=== PATIENT | male | born 1965 | race Caucasian/White ===

== ENCOUNTER → 2022-07-01 | Outpatient (CLI) | payer OTHER ==
[~2022-07-01] MED LIST: HYDR-3917 PO
== END | disposition home or self-care (01) ==
LOC: SRD 16:27
PROVIDERS: ATTEND Surgery
DX: E11.621 Type 2 diabetes mellitus with foot ulcer (principal); M86.9 Osteomyelitis, unspecified; M79.89 Other specified soft tissue disorders

== ENCOUNTER 2022-07-20 10:57 | Inpatient (IN) | payer OTHER ==
[~2022-07-20] VITALS: Ht 172.7 cm; Wt 67.1 kg
[2022-07-20 11:00] VITALS: BP_SYST 142
[2022-07-20 11:53] LABS: BASOPHILS % (AUTO) 0.2 % (0.0-2.0); EOSINOPHILS % (AUTO) 0.2 % (0.0-4.0); HEMATOCRIT 27.8 % (36-54); LYMPHOCYTES # (AUTO) 1.4 K/uL (1.0-5.5); LYMPHOCYTES % (AUTO) 9.9 % (20.5-51.5); MEAN CORPUSCULAR HEMOGLOBIN 27 pg (27-31); MEAN CORPUSCULAR HGB CONC 32 % (32-36); MEAN CORPUSCULAR VOLUME 84 fL (79.0-98.0); MONOCYTES # (AUTO) 1.8 K/uL (0.0-1.0); MONOCYTES % (AUTO) 12.2 % (1.7-9.3); NEUTROPHILS # (AUTO) 11.3 K/uL (1.8-7.7); NEUTROPHILS % (AUTO) 77.5 % (40.0-70.0); PLATELET COUNT (AUTO) 487 K/uL (130-430); RED BLOOD CELL COUNT(AUTO) 3.32 MIL/uL (4.2-6.2); RED CELL DISTRIBUTION WIDTH 13.8 % (9.0-15.0); WHITE BLOOD COUNT (AUTO) 14.6 K/uL (4.8-10.8)
[2022-07-20] MEDS ORDERED: MORPHINE 2 MG/ML INJ. SYRINGE IVP ONE (12:00)
[2022-07-20 12:15] LABS: CALCIUM 8.8 mg/dL (8.4-11.0); CREATININE 1.42 mg/dL (0.55-1.30)
[2022-07-20 12:19] LABS: ALBUMIN 2.2 g/dL (3.4-4.8); C-REACTIVE PROTEIN QUANT 43.8 mg/dL (0-0.5); TOTAL BILIRUBIN 0.4 mg/dL (0.0-1.0)
[2022-07-20] MEDS ORDERED: NAFCILLIN SODIUM 1 GM in NS 50 ML IV SCH (13:15)
[2022-07-20] MEDS ORDERED: NAFCILLIN SODIUM 1 GM in NS 50 ML IV ONE (13:17)
[2022-07-20] MEDS ORDERED: NAFCILLIN SODIUM 2 GM VIAL ONE ×2 (14:35→14:37)
[2022-07-20] MEDS ORDERED: AMOX500C2 PO (15:00)
[2022-07-20] MEDS ORDERED: LIP20 PO (15:00)
[2022-07-20] MEDS ORDERED: GLIP10TA11 PO (15:00)
[2022-07-20] MEDS ORDERED: INSU100V7 SUBCUT (15:00)
[2022-07-20] MEDS ORDERED: DOXY100C5 PO (15:00)
[2022-07-20] MEDS ORDERED: LISI10TA29 PO (15:00)
[2022-07-20] MEDS ORDERED: ONDANSETRON HCL 4 MG/2 ML VIAL IVP PRN (15:15)
[2022-07-20] MEDS ORDERED: POTASSIUM CHLORIDE 20 MEQ TAB.PRT.SR PO PRN (15:15)
[2022-07-20] MEDS ORDERED: MUPIROCIN 2% TOPICAL OINTMENT 22 GM NS PRN (15:15)
[2022-07-20] MEDS ORDERED: DOCUSATE SODIUM 100 MG CAPSULE PO PRN (15:15)
[2022-07-20] MEDS ORDERED: MAGNESIUM SULFATE 50 ML IV PRN (15:15)
[2022-07-20] MEDS ORDERED: NALOXONE HCL 0.4 MG/ML AMP (NARCAN) IVP PRN ×2 (15:15)
[2022-07-20] MEDS: 0.45% NACL 1,000 ML IV SCH (15:15)
[2022-07-20] MEDS ORDERED: ACETAMINOPHEN 325 MG TABLET PO PRN (15:30)
[2022-07-20 16:42] VITALS: BP_SYST 147
[2022-07-20] MEDS ORDERED: cefTRIAXone 1 GM in D5W 50 ML IV SCH (17:00)
[2022-07-20] MEDS: INSULIN NPH/REGULAR 70-30, 100 UNITS/ML, 3 ML VIAL SUBCUT SCH (17:45)
[2022-07-20] MEDS ORDERED: SODIUM POLYSTYRENE SULFONATE 15 GM/60 ML UDBTL PO ONE (19:15)
[2022-07-20 20:00] VITALS: BP_SYST 145
[2022-07-20] MEDS: MORPHINE 2 MG/ML INJ. SYRINGE IVP PRN (21:00)
[2022-07-20] MEDS: HEPARIN SODIUM,PORCINE 5,000 UNITS/ML VIAL SUBCUT SCH (21:02)
[2022-07-20] MEDS: METOPROLOL TARTRATE 25 MG TABLET PO SCH (21:03)
[2022-07-20] MEDS: metroNIDAZOLE 500 mg/NS 100 ML IV SCH (21:08)
[2022-07-20] MEDS: INSULIN REGULAR, HUMAN 100 UNITS/ML, 3 ML VIAL (humuLIN R) SUBCUT PRN (21:09)
[2022-07-21 00:03] VITALS: BP_SYST 142
[2022-07-21] MEDS: 0.45% NACL 1,000 ML IV SCH ×2 (01:15→10:43)
[2022-07-21] MEDS: MORPHINE 2 MG/ML INJ. SYRINGE IVP PRN ×5 (02:37→22:39)
[2022-07-21] MEDS: ZOLPIDEM TARTRATE 5 MG TABLET PO PRN ×2 (02:41→22:40)
[2022-07-21] MEDS: metroNIDAZOLE 500 mg/NS 100 ML IV SCH (05:48)
[2022-07-21] MEDS: INSULIN NPH/REGULAR 70-30, 100 UNITS/ML, 3 ML VIAL SUBCUT SCH ×2 (05:54→18:34)
[2022-07-21 06:12] LABS: BASOPHILS # (AUTO) 0.1 K/uL (0.0-0.2); BASOPHILS % (AUTO) 0.5 % (0.0-2.0); EOSINOPHILS % (AUTO) 0.2 % (0.0-4.0); HEMATOCRIT 25.9 % (36-54); HEMOGLOBIN 8.6 g/dL (14.0-18.0); LYMPHOCYTES % (AUTO) 13.8 % (20.5-51.5); MEAN CORPUSCULAR HEMOGLOBIN 28 pg (27-31); MEAN CORPUSCULAR HGB CONC 33 % (32-36); MEAN CORPUSCULAR VOLUME 83 fL (79.0-98.0); MONOCYTES % (AUTO) 14.2 % (1.7-9.3); NEUTROPHILS # (AUTO) 10.1 K/uL (1.8-7.7); NEUTROPHILS % (AUTO) 71.3 % (40.0-70.0); PLATELET COUNT (AUTO) 436 K/uL (130-430); RED BLOOD CELL COUNT(AUTO) 3.11 MIL/uL (4.2-6.2); RED CELL DISTRIBUTION WIDTH 13.8 % (9.0-15.0); WHITE BLOOD COUNT (AUTO) 14.2 K/uL (4.8-10.8)
[2022-07-21 06:39] LABS: CALCIUM 8.3 mg/dL (8.4-11.0); CREATININE 1.55 mg/dL (0.55-1.30)
[2022-07-21 08:00] VITALS: BP_SYST 149
[2022-07-21 08:45] VITALS: BP_SYST 149
[2022-07-21] MEDS ORDERED: SODIUM HYPOCHLORITE 0.25% TP ONE (10:00)
[2022-07-21] MEDS: LISINOPRIL 10 MG TABLET (PRINIVIL) PO SCH (10:29)
[2022-07-21] MEDS: ATORVASTATIN 20 MG TABLET PO SCH (10:29)
[2022-07-21] MEDS: METOPROLOL TARTRATE 25 MG TABLET PO SCH ×2 (10:31→21:44)
[2022-07-21] MEDS: HEPARIN SODIUM,PORCINE 5,000 UNITS/ML VIAL SUBCUT SCH ×2 (10:33→21:45)
[2022-07-21 11:20] VITALS: BP_SYST 146
[2022-07-21] MEDS: INSULIN REGULAR, HUMAN 100 UNITS/ML, 3 ML VIAL (humuLIN R) SUBCUT PRN ×3 (11:46→21:49)
[2022-07-21] MEDS: PIPERACILLIN/TAZO 2.25G/DEX-IS 50 ML IV SCH ×2 (13:04→18:36)
[2022-07-21 15:32] VITALS: BP_SYST 128
[2022-07-21 20:00] VITALS: BP_SYST 150
[2022-07-21] MEDS ORDERED: NALOXONE HCL 0.4 MG/ML AMP (NARCAN) IVP PRN (20:45)
[2022-07-21] MEDS: LINEZOLID 300 ML IV SCH (21:43)
[2022-07-22] MEDS: HYDROcodone/ACETAMIN 5-325 MG TAB (NORCO/ VICODIN) PO PRN ×3 (00:06→22:00)
[2022-07-22] MEDS: LORazepam 2 MG/ML VIAL IVP PRN (00:08)
[2022-07-22 00:10] VITALS: BP_SYST 141
[2022-07-22] MEDS: 0.45% NACL 1,000 ML IV SCH ×3 (00:24→17:06)
[2022-07-22] MEDS: PIPERACILLIN/TAZO 2.25G/DEX-IS 50 ML IV SCH ×4 (06:01→18:46)
[2022-07-22] MEDS: MORPHINE 2 MG/ML INJ. SYRINGE IVP PRN (06:04)
[2022-07-22] MEDS: INSULIN NPH/REGULAR 70-30, 100 UNITS/ML, 3 ML VIAL SUBCUT SCH ×2 (06:07→16:57)
[2022-07-22] MEDS: INSULIN REGULAR, HUMAN 100 UNITS/ML, 3 ML VIAL (humuLIN R) SUBCUT PRN ×4 (06:08→22:02)
[2022-07-22 06:58] LABS: BASOPHILS # (AUTO) 0.1 K/uL (0.0-0.2); BASOPHILS % (AUTO) 0.4 % (0.0-2.0); EOSINOPHILS # (AUTO) 0.1 K/uL (0.0-0.4); EOSINOPHILS % (AUTO) 0.3 % (0.0-4.0); HEMATOCRIT 26.2 % (36-54); HEMOGLOBIN 8.5 g/dL (14.0-18.0); LYMPHOCYTES % (AUTO) 10.7 % (20.5-51.5); MEAN CORPUSCULAR HEMOGLOBIN 27 pg (27-31); MEAN CORPUSCULAR HGB CONC 33 % (32-36); MEAN CORPUSCULAR VOLUME 84 fL (79.0-98.0); MONOCYTES # (AUTO) 2.2 K/uL (0.0-1.0); MONOCYTES % (AUTO) 11.4 % (1.7-9.3); NEUTROPHILS # (AUTO) 14.8 K/uL (1.8-7.7); NEUTROPHILS % (AUTO) 77.2 % (40.0-70.0); PLATELET COUNT (AUTO) 458 K/uL (130-430); RED BLOOD CELL COUNT(AUTO) 3.14 MIL/uL (4.2-6.2); WHITE BLOOD COUNT (AUTO) 19.2 K/uL (4.8-10.8)
[2022-07-22 07:17] LABS: CALCIUM 8.2 mg/dL (8.4-11.0); CREATININE 1.51 mg/dL (0.55-1.30)
[2022-07-22 08:00] VITALS: BP_SYST 129
[2022-07-22] MEDS: ATORVASTATIN 20 MG TABLET PO SCH (09:25)
[2022-07-22] MEDS: METOPROLOL TARTRATE 25 MG TABLET PO SCH ×2 (09:25→21:43)
[2022-07-22] MEDS: LISINOPRIL 10 MG TABLET (PRINIVIL) PO SCH (09:25)
[2022-07-22] MEDS: HEPARIN SODIUM,PORCINE 5,000 UNITS/ML VIAL SUBCUT SCH ×2 (09:31→22:01)
[2022-07-22] MEDS: INSULIN GLARGINE 100 UNITS/ML, 10 ML VIAL SUBCUT SCH (09:32)
[2022-07-22] MEDS: LINEZOLID 300 ML IV SCH ×2 (09:36→21:41)
[2022-07-22 11:22] VITALS: BP_SYST 134
[2022-07-22] MEDS: ACETAMINOPHEN 325 MG TABLET PO PRN (14:50)
[2022-07-22 15:00] VITALS: BP_SYST 149
[2022-07-22 19:30] VITALS: BP_SYST 125
[2022-07-23] MEDS: PIPERACILLIN/TAZO 2.25G/DEX-IS 50 ML IV SCH ×5 (00:48→23:09)
[2022-07-23] MEDS: MORPHINE 2 MG/ML INJ. SYRINGE IVP PRN ×4 (00:49→22:08)
[2022-07-23 01:09] VITALS: BP_SYST 128
[2022-07-23] MEDS: 0.45% NACL 1,000 ML IV SCH ×3 (03:15→13:49)
[2022-07-23 05:22] LABS: BASOPHILS # (AUTO) 0.1 K/uL (0.0-0.2); BASOPHILS % (AUTO) 0.8 % (0.0-2.0); EOSINOPHILS # (AUTO) 0.2 K/uL (0.0-0.4); EOSINOPHILS % (AUTO) 1.2 % (0.0-4.0); HEMATOCRIT 23.9 % (36-54); HEMOGLOBIN 7.9 g/dL (14.0-18.0); LYMPHOCYTES # (AUTO) 1.7 K/uL (1.0-5.5); LYMPHOCYTES % (AUTO) 11.9 % (20.5-51.5); MEAN CORPUSCULAR HEMOGLOBIN 27 pg (27-31); MEAN CORPUSCULAR HGB CONC 33 % (32-36); MEAN CORPUSCULAR VOLUME 82 fL (79.0-98.0); MONOCYTES # (AUTO) 1.3 K/uL (0.0-1.0); MONOCYTES % (AUTO) 9.7 % (1.7-9.3); NEUTROPHILS # (AUTO) 10.6 K/uL (1.8-7.7); NEUTROPHILS % (AUTO) 76.4 % (40.0-70.0); PLATELET COUNT (AUTO) 415 K/uL (130-430); RED BLOOD CELL COUNT(AUTO) 2.92 MIL/uL (4.2-6.2); WHITE BLOOD COUNT (AUTO) 13.9 K/uL (4.8-10.8)
[2022-07-23 05:44] LABS: CALCIUM 7.5 mg/dL (8.4-11.0); CREATININE 1.62 mg/dL (0.55-1.30)
[2022-07-23 06:07] LABS: BILIRUBIN,URINE NEGATIVE (NEGATIVE); BLOOD, URINE NEGATIVE (NEGATIVE); CLARITY/URINE CLEAR (CLEAR); COLOR,URINE YELLOW (YELLOW); GLUCOSE,URINE NEGATIVE (NEGATIVE); KETONES,URINE TRACE (NEGATIVE); LEUKOCYTE ESTERASE ,URINE NEGATIVE (NEGATIVE); NITRITE, URINE NEGATIVE (NEGATIVE); PROTEIN URINE 1+ (NEGATIVE); UROBILINOGEN,URINE 0.2 (0.2-1.0)
[2022-07-23 06:17] LABS: BACTERIA,URINE None Seen /HPF (None Seen); RBC,URINE 0-3 /HPF (0-3); WBC,URINE 0-3 /HPF (0-3)
[2022-07-23] MEDS: INSULIN REGULAR, HUMAN 100 UNITS/ML, 3 ML VIAL (humuLIN R) SUBCUT PRN ×2 (06:22→16:10)
[2022-07-23] MEDS: INSULIN NPH/REGULAR 70-30, 100 UNITS/ML, 3 ML VIAL SUBCUT SCH ×2 (06:23→16:08)
[2022-07-23 08:02] LABS: INR 1.2 (0.80-1.20); PROTHROMBIN TIME 11.9 SECS (9.5-12.5)
[2022-07-23 08:16] VITALS: BP_SYST 143
[2022-07-23] MEDS: ATORVASTATIN 20 MG TABLET PO SCH (08:24)
[2022-07-23] MEDS: METOPROLOL TARTRATE 25 MG TABLET PO SCH ×2 (08:24→21:55)
[2022-07-23] MEDS: LINEZOLID 300 ML IV SCH ×2 (08:24→22:07)
[2022-07-23] MEDS: HEPARIN SODIUM,PORCINE 5,000 UNITS/ML VIAL SUBCUT SCH ×2 (08:25→21:00)
[2022-07-23] MEDS: LISINOPRIL 10 MG TABLET (PRINIVIL) PO SCH (08:25)
[2022-07-23] MEDS: INSULIN GLARGINE 100 UNITS/ML, 10 ML VIAL SUBCUT SCH (09:07)
[2022-07-23] MEDS: LORazepam 2 MG/ML VIAL IVP PRN (10:20)
[2022-07-23 10:29] VITALS: BP_SYST 150
[2022-07-23 12:27] VITALS: BP_SYST 123
[2022-07-23 15:34] VITALS: BP_SYST 139
[2022-07-23] MEDS: HYDROcodone/ACETAMIN 5-325 MG TAB (NORCO/ VICODIN) PO PRN (17:38)
[2022-07-23 19:30] VITALS: BP_SYST 156
[2022-07-24] MEDS: PIPERACILLIN/TAZO 2.25G/DEX-IS 50 ML IV SCH ×4 (06:26→23:20)
[2022-07-24] MEDS: MORPHINE 2 MG/ML INJ. SYRINGE IVP PRN ×3 (06:29→21:31)
[2022-07-24] MEDS: INSULIN REGULAR, HUMAN 100 UNITS/ML, 3 ML VIAL (humuLIN R) SUBCUT PRN ×2 (06:32→09:50)
[2022-07-24] MEDS: INSULIN NPH/REGULAR 70-30, 100 UNITS/ML, 3 ML VIAL SUBCUT SCH ×2 (06:34→18:09)
[2022-07-24 07:07] LABS: BASOPHILS % (AUTO) 0.2 % (0.0-2.0); EOSINOPHILS # (AUTO) 0.1 K/uL (0.0-0.4); EOSINOPHILS % (AUTO) 0.6 % (0.0-4.0); LYMPHOCYTES # (AUTO) 1.1 K/uL (1.0-5.5); LYMPHOCYTES % (AUTO) 7.8 % (20.5-51.5); MEAN CORPUSCULAR HEMOGLOBIN 27 pg (27-31); MEAN CORPUSCULAR HGB CONC 33 % (32-36); MEAN CORPUSCULAR VOLUME 83 fL (79.0-98.0); MONOCYTES # (AUTO) 1.3 K/uL (0.0-1.0); MONOCYTES % (AUTO) 9.2 % (1.7-9.3); NEUTROPHILS # (AUTO) 11.4 K/uL (1.8-7.7); NEUTROPHILS % (AUTO) 82.2 % (40.0-70.0); PLATELET COUNT (AUTO) 430 K/uL (130-430); RED BLOOD CELL COUNT(AUTO) 2.92 MIL/uL (4.2-6.2); WHITE BLOOD COUNT (AUTO) 13.8 K/uL (4.8-10.8)
[2022-07-24 08:00] VITALS: BP_SYST 140
[2022-07-24] MEDS: LINEZOLID 300 ML IV SCH ×2 (08:17→21:25)
[2022-07-24 08:18] LABS: CALCIUM 7.9 mg/dL (8.4-11.0); CREATININE 1.56 mg/dL (0.55-1.30)
[2022-07-24] MEDS: ATORVASTATIN 20 MG TABLET PO SCH (09:00)
[2022-07-24] MEDS: HEPARIN SODIUM,PORCINE 5,000 UNITS/ML VIAL SUBCUT SCH ×2 (09:00→21:24)
[2022-07-24] MEDS: LISINOPRIL 10 MG TABLET (PRINIVIL) PO SCH (09:00)
[2022-07-24] MEDS: METOPROLOL TARTRATE 25 MG TABLET PO SCH ×2 (09:00→21:22)
[2022-07-24] MEDS ORDERED: D5NS 1,000 ML IV SCH (09:30)
[2022-07-24] MEDS ORDERED: MAGNESIUM SULFATE 3 GM in D5W 100 ML IV ONE (11:00)
[2022-07-24] MEDS ORDERED: fentaNYL CITRATE/PF 100 MCG/2 ML AMP ONE (11:07)
[2022-07-24] MEDS ORDERED: WATER FOR IRRIGATION,STERILE 1,000 ML IRRIG.SOLN IR ONE (11:07)
[2022-07-24] MEDS ORDERED: BUPIVACAINE /PF 0.25% 30 ML VIAL INJ ONE (11:07)
[2022-07-24] MEDS ORDERED: NS 1000 ML IV.SOLN IV ONE (11:07)
[2022-07-24] MEDS ORDERED: MIDAZOLAM HCL 5 MG/ML VIAL (VERSED) IV ONE (11:07)
[2022-07-24] MEDS ORDERED: NS IRRIG SOLN 1000 ML IR ONE (11:07)
[2022-07-24] MEDS ORDERED: PROPOFOL 200MG/ 20ML VIAL (DIPRIVAN) IV ONE (11:07)
[2022-07-24] MEDS ORDERED: ONDANSETRON HCL 4 MG/2 ML VIAL IVP PRN (11:15)
[2022-07-24] MEDS ORDERED: METOCLOPRAMIDE HCL 10 MG/2 ML VIAL IVP PRN (11:15)
[2022-07-24] MEDS ORDERED: HYDROmorphone 1 MG/ML INJ. CARTRIDGE IVP PRN (11:15)
[2022-07-24] MEDS ORDERED: NALOXONE HCL 0.4 MG/ML AMP (NARCAN) IVP PRN (11:15)
[2022-07-24 12:00] VITALS: BP_SYST 143
[2022-07-24] MEDS: INSULIN GLARGINE 100 UNITS/ML, 10 ML VIAL SUBCUT SCH (15:21)
[2022-07-24 19:30] VITALS: BP_SYST 146
[2022-07-25] VITALS (7 sets, daily range): BP systolic 124–155
[2022-07-25] MEDS: NACL 0.9% 1,000 ML IV SCH ×3 (00:09→17:06)
[2022-07-25] MEDS: MORPHINE 2 MG/ML INJ. SYRINGE IVP PRN (02:25)
[2022-07-25] MEDS: PIPERACILLIN/TAZO 2.25G/DEX-IS 50 ML IV SCH ×3 (05:14→17:05)
[2022-07-25] MEDS: LORazepam 2 MG/ML VIAL IVP PRN (05:21)
[2022-07-25 06:29] LABS: BASOPHILS % (AUTO) 0.3 % (0.0-2.0); EOSINOPHILS # (AUTO) 0.1 K/uL (0.0-0.4); EOSINOPHILS % (AUTO) 0.5 % (0.0-4.0); HEMATOCRIT 23.3 % (36-54); HEMOGLOBIN 7.7 g/dL (14.0-18.0); LYMPHOCYTES # (AUTO) 1.4 K/uL (1.0-5.5); LYMPHOCYTES % (AUTO) 10.1 % (20.5-51.5); MEAN CORPUSCULAR HEMOGLOBIN 28 pg (27-31); MEAN CORPUSCULAR HGB CONC 33 % (32-36); MEAN CORPUSCULAR VOLUME 83 fL (79.0-98.0); MONOCYTES # (AUTO) 1.1 K/uL (0.0-1.0); MONOCYTES % (AUTO) 7.9 % (1.7-9.3); NEUTROPHILS # (AUTO) 11.3 K/uL (1.8-7.7); NEUTROPHILS % (AUTO) 81.2 % (40.0-70.0); PLATELET COUNT (AUTO) 437 K/uL (130-430); RED BLOOD CELL COUNT(AUTO) 2.79 MIL/uL (4.2-6.2); RED CELL DISTRIBUTION WIDTH 14.4 % (9.0-15.0); WHITE BLOOD COUNT (AUTO) 13.9 K/uL (4.8-10.8)
[2022-07-25] MEDS: INSULIN REGULAR, HUMAN 100 UNITS/ML, 3 ML VIAL (humuLIN R) SUBCUT PRN ×4 (06:35→21:24)
[2022-07-25] MEDS: HYDROcodone/ACETAMIN 5-325 MG TAB (NORCO/ VICODIN) PO PRN ×2 (06:41→21:09)
[2022-07-25 06:51] LABS: CALCIUM 7.9 mg/dL (8.4-11.0); CREATININE 1.59 mg/dL (0.55-1.30)
[2022-07-25] MEDS: LINEZOLID 300 ML IV SCH ×2 (08:16→21:19)
[2022-07-25] MEDS: INSULIN NPH/REGULAR 70-30, 100 UNITS/ML, 3 ML VIAL SUBCUT SCH ×2 (08:18→16:26)
[2022-07-25] MEDS: INSULIN GLARGINE 100 UNITS/ML, 10 ML VIAL SUBCUT SCH (08:19)
[2022-07-25] MEDS: ATORVASTATIN 20 MG TABLET PO SCH (08:21)
[2022-07-25] MEDS: METOPROLOL TARTRATE 25 MG TABLET PO SCH ×2 (08:24→21:10)
[2022-07-25] MEDS: LISINOPRIL 10 MG TABLET (PRINIVIL) PO SCH (08:25)
[2022-07-25] MEDS: HEPARIN SODIUM,PORCINE 5,000 UNITS/ML VIAL SUBCUT SCH ×2 (08:28→21:13)
[2022-07-25] MEDS: ACETAMINOPHEN 325 MG TABLET PO PRN (16:35)
[2022-07-26] VITALS: BP_SYST 134
[2022-07-26] MEDS: PIPERACILLIN/TAZO 2.25G/DEX-IS 50 ML IV SCH ×4 (00:05→18:03)
[2022-07-26] MEDS: HYDROcodone/ACETAMIN 5-325 MG TAB (NORCO/ VICODIN) PO PRN ×3 (04:20→20:11)
[2022-07-26] MEDS: LORazepam 2 MG/ML VIAL IVP PRN (05:07)
[2022-07-26] MEDS: NACL 0.9% 1,000 ML IV SCH ×2 (05:07→16:25)
[2022-07-26] MEDS: INSULIN NPH/REGULAR 70-30, 100 UNITS/ML, 3 ML VIAL SUBCUT SCH ×2 (06:55→16:23)
[2022-07-26] MEDS: ATORVASTATIN 20 MG TABLET PO SCH (08:24)
[2022-07-26] MEDS: LINEZOLID 300 ML IV SCH ×2 (08:24→20:11)
[2022-07-26] MEDS: LISINOPRIL 10 MG TABLET (PRINIVIL) PO SCH (08:24)
[2022-07-26] MEDS: METOPROLOL TARTRATE 25 MG TABLET PO SCH ×2 (08:25→20:11)
[2022-07-26] MEDS: HEPARIN SODIUM,PORCINE 5,000 UNITS/ML VIAL SUBCUT SCH ×2 (08:28→20:22)
[2022-07-26] MEDS: INSULIN GLARGINE 100 UNITS/ML, 10 ML VIAL SUBCUT SCH (08:34)
[2022-07-26 10:34] LABS: BASOPHILS # (AUTO) 0.1 K/uL (0.0-0.2); BASOPHILS % (AUTO) 0.4 % (0.0-2.0); EOSINOPHILS # (AUTO) 0.3 K/uL (0.0-0.4); HEMOGLOBIN 8.2 g/dL (14.0-18.0); LYMPHOCYTES # (AUTO) 1.5 K/uL (1.0-5.5); LYMPHOCYTES % (AUTO) 10.7 % (20.5-51.5); MEAN CORPUSCULAR HEMOGLOBIN 28 pg (27-31); MEAN CORPUSCULAR HGB CONC 34 % (32-36); MEAN CORPUSCULAR VOLUME 82 fL (79.0-98.0); MONOCYTES # (AUTO) 0.9 K/uL (0.0-1.0); MONOCYTES % (AUTO) 6.6 % (1.7-9.3); NEUTROPHILS # (AUTO) 10.9 K/uL (1.8-7.7); NEUTROPHILS % (AUTO) 80.3 % (40.0-70.0); PLATELET COUNT (AUTO) 463 K/uL (130-430); RED BLOOD CELL COUNT(AUTO) 2.92 MIL/uL (4.2-6.2); RED CELL DISTRIBUTION WIDTH 14.4 % (9.0-15.0); WHITE BLOOD COUNT (AUTO) 13.5 K/uL (4.8-10.8)
[2022-07-26 10:35] LABS: ALBUMIN 1.6 g/dL (3.4-4.8); CALCIUM 7.7 mg/dL (8.4-11.0); CREATININE 1.4 mg/dL (0.55-1.30); TOTAL BILIRUBIN 0.4 mg/dL (0.0-1.0)
[2022-07-26 12:00] VITALS: BP_SYST 130
[2022-07-26] MEDS ORDERED: INSULIN GLARGINE 100 UNITS/ML, 10 ML VIAL SUBCUT ONE (12:00)
[2022-07-26] MEDS: INSULIN REGULAR, HUMAN 100 UNITS/ML, 3 ML VIAL (humuLIN R) SUBCUT PRN ×2 (12:07→20:22)
[2022-07-26] MEDS: ACETAMINOPHEN 325 MG TABLET PO PRN (18:12)
[2022-07-26 20:00] VITALS: BP_SYST 129
[2022-07-26] MEDS: ZOLPIDEM TARTRATE 5 MG TABLET PO PRN (21:45)
[2022-07-27] VITALS: BP_SYST 126
[2022-07-27] MEDS: PIPERACILLIN/TAZO 2.25G/DEX-IS 50 ML IV SCH ×2 (00:02→06:08)
[2022-07-27] MEDS: NACL 0.9% 1,000 ML IV SCH ×3 (01:15→21:15)
[2022-07-27] MEDS: HYDROcodone/ACETAMIN 5-325 MG TAB (NORCO/ VICODIN) PO PRN ×3 (04:21→22:18)
[2022-07-27] MEDS: INSULIN NPH/REGULAR 70-30, 100 UNITS/ML, 3 ML VIAL SUBCUT SCH ×2 (06:14→18:05)
[2022-07-27] MEDS: ATORVASTATIN 20 MG TABLET PO SCH (09:40)
[2022-07-27] MEDS: METOPROLOL TARTRATE 25 MG TABLET PO SCH ×2 (09:46→21:53)
[2022-07-27] MEDS: LINEZOLID 300 ML IV SCH (09:46)
[2022-07-27] MEDS: LISINOPRIL 10 MG TABLET (PRINIVIL) PO SCH (09:46)
[2022-07-27] MEDS: INSULIN GLARGINE 100 UNITS/ML, 10 ML VIAL SUBCUT SCH (09:51)
[2022-07-27] MEDS: HEPARIN SODIUM,PORCINE 5,000 UNITS/ML VIAL SUBCUT SCH ×2 (09:53→21:56)
[2022-07-27] MEDS ORDERED: *CUBICIN 6 MG/KG Q24H/PHARMACY XX PRN (10:30)
[2022-07-27 11:28] VITALS: BP_SYST 175
[2022-07-27] MEDS: INSULIN REGULAR, HUMAN 100 UNITS/ML, 3 ML VIAL (humuLIN R) SUBCUT PRN ×2 (11:52→21:57)
[2022-07-27] MEDS: DAPTOmycin 400 MG in NS 50 ML IV SCH (13:31)
[2022-07-27 15:58] LABS: PROTHROMBIN TIME 10.6 SECS (9.5-12.5)
[2022-07-27 17:02] VITALS: BP_SYST 157
[2022-07-27 20:00] VITALS: BP_SYST 133
[2022-07-28 04:00] VITALS: BP_SYST 144
[2022-07-28] MEDS: ZOLPIDEM TARTRATE 5 MG TABLET PO PRN (05:05)
[2022-07-28] MEDS: INSULIN NPH/REGULAR 70-30, 100 UNITS/ML, 3 ML VIAL SUBCUT SCH ×2 (06:29→17:39)
[2022-07-28] MEDS: INSULIN REGULAR, HUMAN 100 UNITS/ML, 3 ML VIAL (humuLIN R) SUBCUT PRN ×4 (06:30→20:59)
[2022-07-28] MEDS: ATORVASTATIN 20 MG TABLET PO SCH (09:51)
[2022-07-28] MEDS: HEPARIN SODIUM,PORCINE 5,000 UNITS/ML VIAL SUBCUT SCH ×2 (09:51→20:59)
[2022-07-28] MEDS: METOPROLOL TARTRATE 25 MG TABLET PO SCH ×2 (09:52→20:55)
[2022-07-28] MEDS: INSULIN GLARGINE 100 UNITS/ML, 10 ML VIAL SUBCUT SCH (10:00)
[2022-07-28] MEDS: LISINOPRIL 10 MG TABLET (PRINIVIL) PO SCH (10:03)
[2022-07-28 11:23] VITALS: BP_SYST 111
[2022-07-28] MEDS ORDERED: DIPHENHYDRAMINE INJ 50 MG/ML VIAL IVP ONE (13:15)
[2022-07-28] MEDS: ACETAMINOPHEN 325 MG TABLET PO PRN ×2 (13:31→20:55)
[2022-07-28] MEDS: DAPTOmycin 400 MG in NS 50 ML IV SCH (13:38)
[2022-07-28] MEDS: NACL 0.9% 1,000 ML IV SCH ×2 (13:56→17:15)
[2022-07-28 17:47] VITALS: BP_SYST 161
[2022-07-28 20:00] VITALS: BP_SYST 151
[2022-07-29 00:40] VITALS: BP_SYST 126
[2022-07-29 05:30] LABS: BASOPHILS # (AUTO) 0.1 K/uL (0.0-0.2); BASOPHILS % (AUTO) 0.5 % (0.0-2.0); EOSINOPHILS # (AUTO) 0.2 K/uL (0.0-0.4); EOSINOPHILS % (AUTO) 1.3 % (0.0-4.0); HEMATOCRIT 22.6 % (36-54); HEMOGLOBIN 7.6 g/dL (14.0-18.0); LYMPHOCYTES # (AUTO) 1.1 K/uL (1.0-5.5); LYMPHOCYTES % (AUTO) 7.6 % (20.5-51.5); MEAN CORPUSCULAR HEMOGLOBIN 28 pg (27-31); MEAN CORPUSCULAR HGB CONC 34 % (32-36); MEAN CORPUSCULAR VOLUME 82 fL (79.0-98.0); MONOCYTES # (AUTO) 1.4 K/uL (0.0-1.0); MONOCYTES % (AUTO) 9.4 % (1.7-9.3); NEUTROPHILS # (AUTO) 11.7 K/uL (1.8-7.7); NEUTROPHILS % (AUTO) 81.2 % (40.0-70.0); PLATELET COUNT (AUTO) 341 K/uL (130-430); RED BLOOD CELL COUNT(AUTO) 2.76 MIL/uL (4.2-6.2); RED CELL DISTRIBUTION WIDTH 14.3 % (9.0-15.0); WHITE BLOOD COUNT (AUTO) 14.4 K/uL (4.8-10.8)
[2022-07-29] MEDS: NACL 0.9% 1,000 ML IV SCH ×2 (05:38→13:15)
[2022-07-29 06:00] LABS: ALBUMIN 1.6 g/dL (3.4-4.8); CALCIUM 7.8 mg/dL (8.4-11.0); CREATININE 1.21 mg/dL (0.55-1.30); TOTAL BILIRUBIN 0.3 mg/dL (0.0-1.0)
[2022-07-29] MEDS: INSULIN NPH/REGULAR 70-30, 100 UNITS/ML, 3 ML VIAL SUBCUT SCH ×2 (06:05→17:50)
[2022-07-29] MEDS: INSULIN REGULAR, HUMAN 100 UNITS/ML, 3 ML VIAL (humuLIN R) SUBCUT PRN ×4 (06:06→20:23)
[2022-07-29 08:00] VITALS: BP_SYST 128
[2022-07-29] MEDS ORDERED: HYDR-3917 PO (08:10)
[2022-07-29] MEDS ORDERED: METH4TAB17 PO ×2 (08:13)
[2022-07-29] MEDS: METOPROLOL TARTRATE 25 MG TABLET PO SCH ×2 (08:59→20:14)
[2022-07-29] MEDS: ATORVASTATIN 20 MG TABLET PO SCH (09:00)
[2022-07-29] MEDS: HYDROcodone/ACETAMIN 5-325 MG TAB (NORCO/ VICODIN) PO PRN ×2 (09:00→17:59)
[2022-07-29] MEDS: LISINOPRIL 10 MG TABLET (PRINIVIL) PO SCH (09:01)
[2022-07-29] MEDS: HEPARIN SODIUM,PORCINE 5,000 UNITS/ML VIAL SUBCUT SCH ×2 (09:03→20:16)
[2022-07-29] MEDS: INSULIN GLARGINE 100 UNITS/ML, 10 ML VIAL SUBCUT SCH (09:04)
[2022-07-29 11:23] VITALS: BP_SYST 110
[2022-07-29] MEDS: ACETAMINOPHEN 325 MG TABLET PO PRN ×2 (11:23→20:24)
[2022-07-29] MEDS: DAPTOmycin 400 MG in NS 50 ML IV SCH (11:25)
[2022-07-29 15:35] VITALS: BP_SYST 147
[2022-07-29 20:00] VITALS: BP_SYST 136
[2022-07-29] MEDS: ZOLPIDEM TARTRATE 5 MG TABLET PO PRN (20:24)
[2022-07-30] MEDS: NACL 0.9% 1,000 ML IV SCH ×3 (00:10→17:49)
[2022-07-30] MEDS: HYDROcodone/ACETAMIN 5-325 MG TAB (NORCO/ VICODIN) PO PRN ×3 (00:11→16:15)
[2022-07-30 00:33] VITALS: BP_SYST 126
[2022-07-30 04:52] LABS: BASOPHILS # (AUTO) 0.1 K/uL (0.0-0.2); BASOPHILS % (AUTO) 0.4 % (0.0-2.0); EOSINOPHILS # (AUTO) 0.2 K/uL (0.0-0.4); EOSINOPHILS % (AUTO) 1.5 % (0.0-4.0); LYMPHOCYTES # (AUTO) 1.5 K/uL (1.0-5.5); LYMPHOCYTES % (AUTO) 10.2 % (20.5-51.5); MEAN CORPUSCULAR HEMOGLOBIN 27 pg (27-31); MEAN CORPUSCULAR HGB CONC 33 % (32-36); MEAN CORPUSCULAR VOLUME 82 fL (79.0-98.0); MONOCYTES # (AUTO) 1.8 K/uL (0.0-1.0); MONOCYTES % (AUTO) 12.3 % (1.7-9.3); NEUTROPHILS # (AUTO) 11.2 K/uL (1.8-7.7); NEUTROPHILS % (AUTO) 75.6 % (40.0-70.0); PLATELET COUNT (AUTO) 310 K/uL (130-430); RED BLOOD CELL COUNT(AUTO) 2.45 MIL/uL (4.2-6.2); RED CELL DISTRIBUTION WIDTH 14.5 % (9.0-15.0); WHITE BLOOD COUNT (AUTO) 14.8 K/uL (4.8-10.8)
[2022-07-30 05:10] LABS: CALCIUM 7.5 mg/dL (8.4-11.0); CREATININE 1.18 mg/dL (0.55-1.30)
[2022-07-30 06:30] LABS: HEMATOCRIT 20.1 % (36-54); HEMOGLOBIN 6.6 g/dL (14.0-18.0)
[2022-07-30] MEDS: INSULIN NPH/REGULAR 70-30, 100 UNITS/ML, 3 ML VIAL SUBCUT SCH ×2 (07:00→17:47)
[2022-07-30 07:47] VITALS: BP_SYST 142; BP_SYST 146
[2022-07-30] MEDS: ATORVASTATIN 20 MG TABLET PO SCH (08:38)
[2022-07-30] MEDS: LISINOPRIL 10 MG TABLET (PRINIVIL) PO SCH (08:40)
[2022-07-30] MEDS: METOPROLOL TARTRATE 25 MG TABLET PO SCH ×2 (08:41→20:57)
[2022-07-30] MEDS: HEPARIN SODIUM,PORCINE 5,000 UNITS/ML VIAL SUBCUT SCH ×2 (08:48→20:56)
[2022-07-30] MEDS: INSULIN GLARGINE 100 UNITS/ML, 10 ML VIAL SUBCUT SCH (09:35)
[2022-07-30] MEDS: ACETAMINOPHEN 325 MG TABLET PO PRN ×2 (10:12→20:55)
[2022-07-30] MEDS: DAPTOmycin 400 MG in NS 50 ML IV SCH (11:16)
[2022-07-30] MEDS: INSULIN REGULAR, HUMAN 100 UNITS/ML, 3 ML VIAL (humuLIN R) SUBCUT PRN ×3 (11:25→20:58)
[2022-07-30 11:38] VITALS: BP_SYST 140
[2022-07-30] MEDS ORDERED: FLUCONAZOLE IN NACL,ISO-OSM 200 ML IV ONE (12:00)
[2022-07-30 15:12] VITALS: BP_SYST 137
[2022-07-30 18:17] LABS: BASOPHILS % (AUTO) 0.3 % (0.0-2.0); EOSINOPHILS # (AUTO) 0.1 K/uL (0.0-0.4); EOSINOPHILS % (AUTO) 0.5 % (0.0-4.0); HEMATOCRIT 23.5 % (36-54); HEMOGLOBIN 7.7 g/dL (14.0-18.0); LYMPHOCYTES # (AUTO) 1.2 K/uL (1.0-5.5); LYMPHOCYTES % (AUTO) 7.2 % (20.5-51.5); MEAN CORPUSCULAR HEMOGLOBIN 28 pg (27-31); MEAN CORPUSCULAR HGB CONC 33 % (32-36); MEAN CORPUSCULAR VOLUME 84 fL (79.0-98.0); MONOCYTES # (AUTO) 2.3 K/uL (0.0-1.0); MONOCYTES % (AUTO) 13.1 % (1.7-9.3); NEUTROPHILS # (AUTO) 13.6 K/uL (1.8-7.7); NEUTROPHILS % (AUTO) 78.9 % (40.0-70.0); PLATELET COUNT (AUTO) 278 K/uL (130-430); RED BLOOD CELL COUNT(AUTO) 2.79 MIL/uL (4.2-6.2); RED CELL DISTRIBUTION WIDTH 14.8 % (9.0-15.0); WHITE BLOOD COUNT (AUTO) 17.3 K/uL (4.8-10.8)
[2022-07-30 20:00] VITALS: BP_SYST 163
[2022-07-30] MEDS ORDERED: ZOLPIDEM TARTRATE 5 MG TABLET PO PRN (21:15)
[2022-07-31] VITALS: BP_SYST 142
[2022-07-31 05:32] LABS: BASOPHILS # (AUTO) 0.1 K/uL (0.0-0.2); BASOPHILS % (AUTO) 0.5 % (0.0-2.0); EOSINOPHILS # (AUTO) 0.1 K/uL (0.0-0.4); EOSINOPHILS % (AUTO) 0.3 % (0.0-4.0); HEMOGLOBIN 7.6 g/dL (14.0-18.0); LYMPHOCYTES # (AUTO) 1.2 K/uL (1.0-5.5); LYMPHOCYTES % (AUTO) 6.3 % (20.5-51.5); MEAN CORPUSCULAR HEMOGLOBIN 27 pg (27-31); MEAN CORPUSCULAR HGB CONC 33 % (32-36); MEAN CORPUSCULAR VOLUME 83 fL (79.0-98.0); MONOCYTES # (AUTO) 2.2 K/uL (0.0-1.0); MONOCYTES % (AUTO) 11.9 % (1.7-9.3); NEUTROPHILS # (AUTO) 14.8 K/uL (1.8-7.7); PLATELET COUNT (AUTO) 297 K/uL (130-430); RED BLOOD CELL COUNT(AUTO) 2.78 MIL/uL (4.2-6.2); RED CELL DISTRIBUTION WIDTH 14.5 % (9.0-15.0); WHITE BLOOD COUNT (AUTO) 18.3 K/uL (4.8-10.8)
[2022-07-31 05:56] LABS: CALCIUM 7.5 mg/dL (8.4-11.0); CREATININE 1.25 mg/dL (0.55-1.30)
[2022-07-31] MEDS: NACL 0.9% 1,000 ML IV SCH (06:25)
[2022-07-31] MEDS: ACETAMINOPHEN 325 MG TABLET PO PRN (06:27)
[2022-07-31] MEDS: INSULIN NPH/REGULAR 70-30, 100 UNITS/ML, 3 ML VIAL SUBCUT SCH (07:00)
[2022-07-31 07:54] VITALS: BP_SYST 137
[2022-07-31] MEDS: ATORVASTATIN 20 MG TABLET PO SCH (08:33)
[2022-07-31] MEDS: METOPROLOL TARTRATE 25 MG TABLET PO SCH (08:33)
[2022-07-31] MEDS: LISINOPRIL 10 MG TABLET (PRINIVIL) PO SCH (08:33)
[2022-07-31] MEDS: INSULIN GLARGINE 100 UNITS/ML, 10 ML VIAL SUBCUT SCH (08:35)
[2022-07-31] MEDS: HEPARIN SODIUM,PORCINE 5,000 UNITS/ML VIAL SUBCUT SCH (08:36)
[2022-07-31 09:19] VITALS: BP_SYST 137
[2022-07-31 10:39] VITALS: BP_SYST 133
[2022-07-31] MEDS ORDERED: FUROSEMIDE 20 MG/2 ML VIAL IVP ONE (11:00)
[2022-07-31] MEDS ORDERED: IPRATROPIUM/ALBUTEROL SULFATE 3 ML AMPUL.NEB (DUONEB) INH ONE (11:00)
[2022-07-31] MEDS: INSULIN REGULAR, HUMAN 100 UNITS/ML, 3 ML VIAL (humuLIN R) SUBCUT PRN (11:13)
[2022-07-31] MEDS: DAPTOmycin 400 MG in NS 50 ML IV SCH (11:16)
[2022-07-31 14:16] VITALS: BP_SYST 156
== END 2022-07-31 16:00 | disposition home health service (06) | DRG 853 ==
LOC: SED 10:57 → SMU 14:06
PROVIDERS: ADMIT General Practice; ATTEND General Practice
PROC: 0JBQ0ZZ Excision of Right Foot Subcutaneous Tissue and Fascia, Open Approach (ICD-10-PCS; principal; 2022-07-24 10:09)
PROC: 30233N1 Transfusion of Nonautologous Red Blood Cells into Peripheral Vein, Percutaneous Approach (ICD-10-PCS; 2022-07-30)
DX: A41.9 Sepsis, unspecified organism (principal); N17.0 Acute kidney failure with tubular necrosis; L03.115 Cellulitis of right lower limb; E44.0 Moderate protein-calorie malnutrition; E87.1 Hypo-osmolality and hyponatremia; T81.30XA Disruption of wound, unspecified, initial encounter; E11.621 Type 2 diabetes mellitus with foot ulcer; E11.65 Type 2 diabetes mellitus with hyperglycemia; E87.5 Hyperkalemia; Y83.8 Other surgical procedures as the cause of abnormal reaction of the patient, or of later complication, without mention of misadventure at the time of the procedure; E11.51 Type 2 diabetes mellitus with diabetic peripheral angiopathy without gangrene; I10 Essential (primary) hypertension; Z79.1 Long term (current) use of non-steroidal anti-inflammatories (NSAID); Z79.899 Other long term (current) drug therapy; Z79.891 Long term (current) use of opiate analgesic; Y92.89 Other specified places as the place of occurrence of the external cause; Z89.429 Acquired absence of other toe(s), unspecified side; Z68.22 Body mass index [BMI] 22.0-22.9, adult
CPT/HCPCS: 36415; 71045; 80048; 80053; 81000; 82533; 83037; 83605; 83735; 84443; 85025; 85610-TC; 85730-TC; 86140; 86886; 86900; 86901; 86920; 87040; 87081; 88304; 93005; 94640; 94760; 96365; 96375; 99285; J0696; J0878; J1200; J1450; J1644; J1815; J1940; J1956; J2020; J2060; J2250; J2270; J2543; J2704; J3010; J3475; J3490; J7030; J7042; J7060; P9021

== ENCOUNTER 2022-08-01 11:16 | Inpatient (IN) | payer OTHER ==
[~2022-08-01] VITALS: Ht 172.7 cm; Wt 68.0 kg
[~2022-08-01 11:16] MED LIST changes: +DOXY100C5 PO; +GLIP10TA11 PO; +INSU100V7 SUBCUT; +LIP20 PO; +LISI10TA29 PO
[2022-08-01 11:51] VITALS: BP_SYST 130
[2022-08-01] MEDS ORDERED: iohexoL 350 mgI/mL, 100 ML INFUS..BTL IV ONE (12:09)
[2022-08-01 12:27] LABS: BASOPHILS # (AUTO) 0.1 K/uL (0.0-0.2); BASOPHILS % (AUTO) 0.4 % (0.0-2.0); EOSINOPHILS # (AUTO) 0.1 K/uL (0.0-0.4); EOSINOPHILS % (AUTO) 0.5 % (0.0-4.0); HEMATOCRIT 22.5 % (36-54); HEMOGLOBIN 7.4 g/dL (14.0-18.0); LYMPHOCYTES # (AUTO) 0.8 K/uL (1.0-5.5); MEAN CORPUSCULAR HEMOGLOBIN 27 pg (27-31); MEAN CORPUSCULAR HGB CONC 33 % (32-36); MEAN CORPUSCULAR VOLUME 84 fL (79.0-98.0); MONOCYTES # (AUTO) 1.3 K/uL (0.0-1.0); MONOCYTES % (AUTO) 7.9 % (1.7-9.3); NEUTROPHILS # (AUTO) 14.1 K/uL (1.8-7.7); NEUTROPHILS % (AUTO) 86.2 % (40.0-70.0); PLATELET COUNT (AUTO) 426 K/uL (130-430); RED BLOOD CELL COUNT(AUTO) 2.69 MIL/uL (4.2-6.2); RED CELL DISTRIBUTION WIDTH 15.3 % (9.0-15.0); WHITE BLOOD COUNT (AUTO) 16.4 K/uL (4.8-10.8)
[2022-08-01 12:38] LABS: ANION GAP 10 (5-15); CALCIUM 7.5 mg/dL (8.4-11.0); CHLORIDE 97 mmol/L (98-107); CREATININE 1.41 mg/dL (0.55-1.30); GFR AFRICAN AMERICAN 67 mL/min (>90); GLUCOSE 300 mg/dL (70-99); UREA NITROGEN, BLOOD 32 mg/dL (8-21)
[2022-08-01 12:58] LABS: ALANINE AMINOTRANSFERASE 107 U/L (12-78); ALBUMIN 1.4 g/dL (3.4-4.8); ASPARTATE AMINOTRANSFERASE 89 U/L (10-37); TOTAL BILIRUBIN 0.4 mg/dL (0.0-1.0)
--- NOTE | 2022-08-01 13:02 | NUR ---
critical lab TROPONIN 90 Addendum: 08/01/22 at 1302 by [email or web address] MD NOTIFIED OF CRITICAL LAB
[2022-08-01] MEDS ORDERED: CEFEPIME 1 GM in D5W 50 ML IV ONE (13:30)
[2022-08-01] MEDS ORDERED: NACL 0.9% 1,000 ML IV ONE (13:45)
[2022-08-01 13:54] LABS: BILIRUBIN,URINE NEGATIVE (NEGATIVE); CLARITY/URINE CLEAR (CLEAR); COLOR,URINE YELLOW (YELLOW); GLUCOSE,URINE NEGATIVE (NEGATIVE); KETONES,URINE 1+ (NEGATIVE); LEUKOCYTE ESTERASE ,URINE NEGATIVE (NEGATIVE); NITRITE, URINE NEGATIVE (NEGATIVE); PROTEIN URINE 3+ (NEGATIVE); UROBILINOGEN,URINE 0.2 (0.2-1.0)
[2022-08-01 13:57] LABS: BLOOD, URINE TRACE (NEGATIVE)
--- NOTE | 2022-08-01 13:59 | NUR ---
Called On-call for admission orders.
[2022-08-01 14:08] LABS: BACTERIA,URINE FEW /HPF (None Seen); FINE GRANULAR CASTS,URINE 0-10 /LPF (None Seen); MUCUS,URINE None Seen /LPF (None Seen); RBC,URINE NONE SEEN /HPF (0-3); WBC,URINE 0-3 /HPF (0-3)
--- NOTE | 2022-08-01 14:12 | NUR ---
Pt bib family from home. Chief complaint fever and wound check. Son notes pt was febrile this morning with 104 temperature and tachycardic with heart rate 120s. Family states blackness at right foot heel. Pt recovering from right lower wound to foot.
--- NOTE | 2022-08-01 14:29 | NUR ---
Accucheck 294 no intake.
--- NOTE | 2022-08-01 14:37 | NUR ---
Admit bed requested Patient will be admitted to care of . Admitted to tele unit. Diagnosis sepsis pnuemmonia and respiratory failure Inpatient (Yes or No) y Observation (Yes or No) n Orientation concerns or request close to nursing station (Yes or No) n Covid Status pending On vent or bipap Isolation requirements n Needs a sitter n From Home (Yes or if No enter name of facility) home Requires Dialysis (Yes or No) no Med Rec Completed (Yes of No) pending
[2022-08-01 15:55] VITALS: BP_SYST 136
--- NOTE | 2022-08-01 15:57 | NUR ---
Patient will be admitted to care of [facility]. Admitted to MEDSURG unit. Will go to room 103B. Belongings list completed. Complete and up to date summary report printed. SBAR report to be given at bedside with opportunity for questions.
--- NOTE | 2022-08-01 16:02 | NUR ---
OPENING NOTES: RECEIVED BEDSIDE SBAR FROM [facility], NO S/S OF ANY DISTRESS, NON LABOR BREATHING NC 2 LTS, PICC TO RIGHT UPPER ARM INTACT, WOUND VAC TO RIGHT FOOT/TOES AREA, A/O X4 SLOVENIAN SPEAKING ONLY FAMILY AT BEDSIDE (SON, ) BED AT LOCKED AND LOW POSITION CALL LIGHT IN REACH, WILL CONT TO MONITOR PATIENT
--- NOTE | 2022-08-01 16:18 | NUR ---
Patient will be admitted to care of TELE NURSE. Admitted to unit. Will go to room . Belongings list completed. Complete and up to date summary report printed. SBAR report to be given at bedside with opportunity for questions.
--- NOTE | 2022-08-01 16:42 | NUR ---
SON: MICHELLE [phone] CELL SPEAKS MOLDOVAN
[2022-08-01] MEDS ORDERED: LORazepam 2 MG/ML VIAL IVP PRN (16:45)
[2022-08-01] MEDS ORDERED: ONDANSETRON HCL 4 MG/2 ML VIAL IVP PRN (16:45)
[2022-08-01] MEDS ORDERED: HYDROcodone/ACETAMIN 5-325 MG TAB (NORCO/ VICODIN) PO PRN (16:45)
[2022-08-01] MEDS ORDERED: NALOXONE HCL 0.4 MG/ML AMP (NARCAN) IVP PRN ×2 (16:45)
[2022-08-01 16:55] VITALS: BP_SYST 136
[2022-08-01] MEDS ORDERED: ACETAMINOPHEN 325 MG TABLET PO PRN (17:00)
--- NOTE | 2022-08-01 17:28 | NUR ---
CONSULTATION PAGED/CALLED Reason for Consultation: ELEVATED TROPONIN Person Who was Notified: DR. Jayna CARRION. MADE AWARE. Consulting Physician: DR. Jayna CARRION Conversion Developer Specialty:CARDIO Ordering Physician: DR. CARRION
--- NOTE | 2022-08-01 17:30 | NUR ---
CONSULTATION PAGED/CALLED Reason for Consultation: DAYSI Person Who was Notified: DR. GUO JOY LOADING MACHINE OPERATOR. MADE AWARE. Consulting Physician: DR. CHAKRABORTY. DR. GUO JOY LOADING MACHINE OPERATOR Adult High School Instructor Specialty: NEPHRO Ordering Physician: DR. CARRINO
[2022-08-01] MEDS: HYDROcodone/ACETAMIN 10-325 MG TAB PO PRN (17:32)
--- NOTE | 2022-08-01 17:35 | NUR ---
CONSULTATION PAGED/CALLED Reason for Consultation: PNEUMONIA Person Who was Notified: EXCHANGE EQUIPMENT OPERATOR/LABORER LARON Consulting Physician: DR. HAYS Roll Cutter Specialty: PULMO Ordering Physician: DR. CARRION
--- NOTE | 2022-08-01 17:38 | NUR ---
CONSULTATION PAGED/CALLED Reason for Consultation: SEPSIS Person Who was Notified: EXCHANGE REPRESENATIVE Consulting Physician: DR. TUCKER Butter Printer Specialty: ID Ordering Physician: DR. CARRION Addendum: 08/01/22 at 1743 by Shamika Roblero LVN CONSULTATION PAGED/CALLED Reason for Consultation: SEPSIS Person Who was Notified: EXCHANGE - SADI Consulting Physician: DR. TUCKER Butter Printer Specialty: ID Ordering Physician: DR. CARRION
[2022-08-01] MEDS: INSULIN REGULAR, HUMAN 100 UNITS/ML, 3 ML VIAL (humuLIN R) SUBCUT PRN ×2 (17:41→21:32)
--- NOTE | 2022-08-01 18:28 | NUR ---
WOUND VAC FROM RIGHT FOOT REMOVED FROM HOME, CLEANED PICTURES TAKEN, REWRAPPED.
--- NOTE | 2022-08-01 18:42 | NUR ---
CLOSING NOTES: PATIENT REMAINS STABLE, NO S/S OF ANY DISTRESS, NON LABOR BREATHING, IV INTACT, BED AT LOW AND LOCKED POSITION, WILL GIVE PM SHIFT NURSE BEDSIDE SBAR.
--- NOTE | 2022-08-01 19:20 | NUR ---
Opening note Received SBAR from DAVIDSON Zarate. Patient is resting in bed, awake, AOx4. No distress and nonlabored breathing on 2l NC. Skin is warm and dry. He has PICC to [facility], and urinal at bedside; provided blue rosen. is visiting in room with patient. He speaks Tristanian (I also speak Tristanian) and I'm able to understand/communicate with him. Reviewed use of call light. Bed is locked in lowest position, side rails up 2, and bed alarm is on.
[2022-08-01 20:10] VITALS: BP_SYST 134
[2022-08-01] MEDS: ATORVASTATIN 20 MG TABLET PO SCH (21:24)
[2022-08-01] MEDS: DOXYCYCLINE HYCLATE 100 MG CAPSULE PO SCH (21:24)
--- NOTE | 2022-08-01 21:31 | NUR ---
MEDS SCHEDULED MEDS GIVEN (LIPITOR, VIBRAMYCIN), REVIEWED SIDE EFFECTS AND HE VERBALIZED UNDERSTANDING. FINGERSTICK BS RESULT WAS 262mg/Dl AND covered per sliding scale.
[2022-08-01] MEDS: NORMAL SALINE 5 ML DISP.SYRIN IVF SCH (21:32)
[2022-08-01] MEDS ORDERED: ALBUMIN HUMAN 25% 100 ML IV ONE (22:00)
--- NOTE | 2022-08-01 22:04 | NUR ---
Dr. Ocampo rounds At bedside to see/eval patient. New orders entered, will carry out.
--- NOTE | 2022-08-01 22:20 | NUR ---
Central line dressing change Dressing to [facility] PICC was changed per hospital protocol; use of sterile technique. Explained procedure to patient and he was in agreement, tolerated.
--- NOTE | 2022-08-01 22:31 | NUR ---
Albumin Administered albumin as ordered, infusing well. Patient wants to sleep, lights are out.
--- NOTE | 2022-08-02 | NUR ---
NPO Reminded patient he will be NPO and offered apple juice /drink of water. I asked if he needs pain med. He said right now does not want pain med, he wants a sleeping pill, will neville SLAUGHTER.
--- NOTE | 2022-08-02 00:25 | NUR ---
waiting for Dr. Tate call back going to break; endorsed to Charge nurse that Dr. Tate was paged (patient wanted sleeping pill-now he is sleeping, he will be NPO for u/s study, IVF?)
[2022-08-02 00:53] VITALS: BP_SYST 138
--- NOTE | 2022-08-02 01:26 | NUR ---
Dr. Ocampo s/w Dr. Ocampo to clarify recommendation in consult report. She indicates patient will be on IV fluid to minimize contrast neuropathy and I informed patient is not on fluids; he is saline locked. Received order for D5 1/2 NS at 50 ml/hr: BRANDON
--- NOTE | 2022-08-02 01:43 | NUR ---
Dr. Tate s/w Dr. Tate and updated on Dr. Ocampo's orders. He said keep IVF order; once he starts eating; switch to 1/2 NS at same rate.
[2022-08-02] MEDS: D5/0.45 NS 1,000 ML IV SCH ×2 (01:51→18:34)
[2022-08-02] MEDS: NORMAL SALINE 5 ML DISP.SYRIN IVF SCH ×3 (06:00→21:43)
[2022-08-02] MEDS: INSULIN REGULAR, HUMAN 100 UNITS/ML, 3 ML VIAL (humuLIN R) SUBCUT PRN ×4 (06:31→21:50)
[2022-08-02 07:26] LABS: BASOPHILS # (AUTO) 0.1 K/uL (0.0-0.2); BASOPHILS % (AUTO) 0.5 % (0.0-2.0); EOSINOPHILS # (AUTO) 0.1 K/uL (0.0-0.4); EOSINOPHILS % (AUTO) 0.6 % (0.0-4.0); HEMOGLOBIN 7.1 g/dL (14.0-18.0); LYMPHOCYTES # (AUTO) 1.5 K/uL (1.0-5.5); LYMPHOCYTES % (AUTO) 8.4 % (20.5-51.5); MEAN CORPUSCULAR HEMOGLOBIN 27 pg (27-31); MEAN CORPUSCULAR HGB CONC 33 % (32-36); MEAN CORPUSCULAR VOLUME 84 fL (79.0-98.0); MONOCYTES # (AUTO) 1.2 K/uL (0.0-1.0); MONOCYTES % (AUTO) 7.1 % (1.7-9.3); NEUTROPHILS # (AUTO) 14.5 K/uL (1.8-7.7); NEUTROPHILS % (AUTO) 83.4 % (40.0-70.0); PLATELET COUNT (AUTO) 445 K/uL (130-430); RED CELL DISTRIBUTION WIDTH 15.7 % (9.0-15.0); WHITE BLOOD COUNT (AUTO) 17.4 K/uL (4.8-10.8)
[2022-08-02 07:33] LABS: HEMATOCRIT 21.7 % (36-54)
--- NOTE | 2022-08-02 07:35 | NUR ---
aubrie Tate. waiting for callback.
[2022-08-02 07:41] LABS: TOTAL IRON BIND. CAPACITY 74 ug/dL (250-450)
[2022-08-02 07:44] LABS: CALCIUM 7.8 mg/dL (8.4-11.0); CREATININE 1.5 mg/dL (0.55-1.30); PHOSPHORUS 3.1 mg/dL (2.7-4.5)
--- NOTE | 2022-08-02 07:59 | NUR ---
OPENING NOTES: RECEIVED BEDSIDE SBAR FROM PM SHIFT NURSE, NON S/S OF ANY DISTRESS, NON LABOR BREATHING, IV INTACT, BED AT LOW AND LOCKED POSITION CALL LIGHT IN REACH, ALL SAFETY CHECKS DONE AND WILL DO THOUGHT THE DAY. PATIENT RESTING IN BED WITH EYES CLOSED, WILL CONT TO MONITOR PATIENT AND GIVE MEDS PER ORDERS.
[2022-08-02 08:00] VITALS: BP_SYST 133
[2022-08-02] MEDS: DOXYCYCLINE HYCLATE 100 MG CAPSULE PO SCH ×2 (09:00→21:43)
[2022-08-02] MEDS: LISINOPRIL 10 MG TABLET (PRINIVIL) PO SCH (09:00)
--- NOTE | 2022-08-02 11:06 | NUR ---
CONSULTATION PAGED/CALLED Reason for Consultation: right foot wound Person Who was Notified: exchange chain sales representative cleopatra lozada MD Consulting Physician: Dr. Cook Facility Sales And Admin Specialty: surgeon Ordering Physician: norma
[2022-08-02 12:30] VITALS: BP_SYST 134
[2022-08-02] MEDS: AMPICILLIN SODIUM/SULBACTAM NA 3 GM in NS 100 ML IV SCH ×2 (15:12→18:10)
[2022-08-02] MEDS: ACETAMINOPHEN 325 MG TABLET PO PRN (17:43)
[2022-08-02] MEDS: DOCUSATE SODIUM 100 MG CAPSULE PO PRN (17:45)
[2022-08-02 18:36] VITALS: BP_SYST 132
--- NOTE | 2022-08-02 19:15 | NUR ---
Opening note Received SBAR from DAVIDSON Zarate. Patient is resting in bed, awake, AOx4. No distress and nonlabored breathing on 2l NC. Skin is warm and dry. He has PICC to [facility]. Family is visiting in room with patient. Patient reports he is concerned about foot/leg pain and hi is also is worried about medications harming his Kidneys, (Herrera reports Tylenol given for pain). Reviewed use of call light. Bed is locked in lowest position, side rails up 2, and bed alarm is on.
[2022-08-02 20:00] VITALS: BP_SYST 114
--- NOTE | 2022-08-02 21:29 | NUR ---
- Toradol Patient is reporting severe pain and I informed Dr. Tate Patient was given Tylenol at 1730 and patient requesting an IV pain med; he said PO med is too slow (he has [place] ordered) and wants something that will help. Received medication order for Toradol 30mg IVP one time, BRANDON.
[2022-08-02] MEDS ORDERED: KETOROLAC TROMETHAMINE 30 MG VIAL IVP ONE (21:30)
[2022-08-02] MEDS: ATORVASTATIN 20 MG TABLET PO SCH (21:43)
[2022-08-02] MEDS: 0.45% NACL 1,000 ML IV SCH (21:44)
[2022-08-03] MEDS: AMPICILLIN SODIUM/SULBACTAM NA 3 GM in NS 100 ML IV SCH ×4 (00:31→17:41)
[2022-08-03 00:52] VITALS: BP_SYST 135
--- NOTE | 2022-08-03 02:42 | NUR ---
Patient care, pain med Patient is awake and requesting a new gown - it's wet. He was provided w/ a bed bath and new bed linens. He was repositioned for comfort. He reports pain to right foot is returning, it is not severe this time, it's moderate 4/10. Administered [place] 5-325 as ordered. Safety precautions in place and call light w/in reach.
--- NOTE | 2022-08-03 03:45 | NUR ---
Dr. Tate - Alteplase / Cathflow Informed MD the red port is occluded on PICC line. Received medication order for Alteplase, unclog PICC, standard dose: TORB
[2022-08-03] MEDS ORDERED: ALTEPLASE 2 MG VIAL MC ONE (04:00)
[2022-08-03 04:50] LABS: BASOPHILS # (AUTO) 0.1 K/uL (0.0-0.2); BASOPHILS % (AUTO) 0.6 % (0.0-2.0); EOSINOPHILS # (AUTO) 0.3 K/uL (0.0-0.4); EOSINOPHILS % (AUTO) 2.2 % (0.0-4.0); HEMATOCRIT 22.3 % (36-54); HEMOGLOBIN 7.4 g/dL (14.0-18.0); LYMPHOCYTES # (AUTO) 1.8 K/uL (1.0-5.5); LYMPHOCYTES % (AUTO) 12.9 % (20.5-51.5); MEAN CORPUSCULAR HEMOGLOBIN 28 pg (27-31); MEAN CORPUSCULAR HGB CONC 33 % (32-36); MEAN CORPUSCULAR VOLUME 84 fL (79.0-98.0); MONOCYTES # (AUTO) 1.2 K/uL (0.0-1.0); MONOCYTES % (AUTO) 8.9 % (1.7-9.3); NEUTROPHILS # (AUTO) 10.5 K/uL (1.8-7.7); NEUTROPHILS % (AUTO) 75.4 % (40.0-70.0); PLATELET COUNT (AUTO) 565 K/uL (130-430); RED BLOOD CELL COUNT(AUTO) 2.67 MIL/uL (4.2-6.2); RED CELL DISTRIBUTION WIDTH 15.4 % (9.0-15.0); WHITE BLOOD COUNT (AUTO) 13.9 K/uL (4.8-10.8)
[2022-08-03 05:45] LABS: ALBUMIN 1.7 g/dL (3.4-4.8); CALCIUM 7.8 mg/dL (8.4-11.0); CREATININE 1.53 mg/dL (0.55-1.30); PHOSPHORUS 3.8 mg/dL (2.7-4.5); TOTAL BILIRUBIN 0.5 mg/dL (0.0-1.0)
[2022-08-03] MEDS: NORMAL SALINE 5 ML DISP.SYRIN IVF SCH ×3 (06:38→22:00)
[2022-08-03] MEDS: INSULIN REGULAR, HUMAN 100 UNITS/ML, 3 ML VIAL (humuLIN R) SUBCUT PRN ×3 (06:45→17:47)
[2022-08-03 07:59] VITALS: BP_SYST 135
[2022-08-03 08:39] LABS: ERYTHROCYTE SEDIMENTATION RATE 67 MM/HR (0-15)
[2022-08-03] MEDS: LISINOPRIL 10 MG TABLET (PRINIVIL) PO SCH (09:16)
[2022-08-03] MEDS: DOXYCYCLINE HYCLATE 100 MG CAPSULE PO SCH ×2 (09:16→22:43)
[2022-08-03] MEDS ORDERED: NS IV ONE (11:00)
[2022-08-03] MEDS ORDERED: CALCIUM GLUCONATE IV ONE (11:00)
[2022-08-03 11:22] VITALS: BP_SYST 156
--- NOTE | 2022-08-03 13:43 | NUR ---
KAYLENE DCP for SNF. faxed referral to SNFs per patient insurance contracted facilities. [facility] [address] f#[phone] [facility] f# [phone] [facility] f# [phone] [facility] f# [phone] [facility] f#[phone]. Sumaya from [facility] return phone call to inform that they cannot accommodate IV abx Q6h. They can accept a Q12h.
[2022-08-03 15:24] VITALS: BP_SYST 158
--- NOTE | 2022-08-03 15:55 | NUR ---
WOUND EVALUATION: Wound Consult received from Dr. Ed Tate. Thank you, Dr. Tate, for the consult. Patient received in a [place] Bed with an IsoFlex CHRISTOPHE mattress, awake, alert, Rwandan speaking. Patient is able to turn in bed independently. Dev Score is a 17. 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 Status post revascularization procedure at [facility] in 06/2022, Appendectomy. Status post Irrigation and Excisional Debridement of Right Foot Wound at [facility] on 07/21/2022. Recent Labs: 1.9, RBC 2.67, hemoglobin 7.4, hematocrit 22.3, platelets 565, BUN 34, creatinine 1.53, GFR 50, glucose 172, AST 106, ALT 105, alkaline phosphatase 120.1, C-reactive protein 55.0, serum total protein 6.3, albumin 1.7. Microbiology: Blood culture results x2 in progress. MRSA screen results in progress. Urine culture results negative. Right foot wound culture results in progress. Intrinsic factors that delay wound healing: Diabetes mellitus, gangrenous toes, Hyperglycemia, Hypoalbuminemia. Extrinsic factors that delay wound healing: Decreased mobility. Wound Assessment: 1. Right Distal Foot (prior amputation site of Hallux and Second toe, progressing to medial aspect of Third Distal Toe): Nonhealing amputation site of prior diabetic ulcers, status post Irrigation and Excisional Debridement at [facility] on 07/21/2022, present on admission. Site has 60% leathery black tissue, 40% leathery dark yellow tissue. No odor, scant red/yellow drainage. Periwound intact. Bilateral lower extremities are (equally) warm to touch. Right lower extremity has moderate edema, dull red erythema present. Wound measures 7.5 cm x 7.2 cm x 1.2 cm. Recommend: Cleanse wound with normal saline. Apply moisture barrier cream to periwound. Apply Venelex ointment to wound bed. Cover with non-adhesive foam dressing, wrap with Анна wrap. Secure loosely with elastic bandage. Perform wound care daily, and as needed for dressing soiling or dislodgement. 2. Right Plantar Foot: Right Plantar Foot has white macerated skin with 95% black discoloration under the skin and 10% dark red coloration under the skin. No odor, no drainage. Periwound intact. Involved area present across whole width of mid foot, as well as portions of lateral and medial aspects of foot, and extends distally connecting to the Wound #1. Site measures 8.5 cm x 9.0 cm. Recommend: Cleanse site with wound cleanser. Gently pat dry. Apply Betadine to involved areas. Allow Betadine to air dry. Cover entire site with alginate dressing. With nonadhesive foam dressing. Wrap with same Анна wrap and secure loosely with same elastic bandage as used in Wound site 1. 3. Right Dorsal Foot: Chronic Diabetic Ulcer, present on admission. Wound bed has 100% black eschar. No odor, no drainage. Periwound intact. Surrounding tissue has dull red erythema. Wound measures 2.5 cm x 2.5 cm. Recommend: [place] eschar with Betadine. Allow Betadine to air dry. Cover site with alginate dressing, run alginate dressing in between third and fourth toes and over dorsal foot and superior portion of plantar foot wounds as well. Secure dressing with same Анна wrap and elastic bandage used for sites 1 and 2. Perform site care daily, and as needed for dressing soiling or dislodgment. 4. Right Distal Third Toe, Lateral aspect: Chronic diabetic ulcer, present on admission. Wound bed has 100% black eschar. No odor, no drainage. Periwound intact. Interdigital webspace between toes 3 and 4 have white macerated tissue. Wound measures 0.7 cm x 0.6 cm. Recommend: [place] eschar with Betadine. Allow Betadine to air dry. Place strip of alginate dressing in between third and fourth toes and place over dorsal foot wound and superior portion of plantar foot wound. Wrap with same Анна wrap and elastic bandages used in sites 1, 2 and 2. Also recommend: Encourage and assist patient as needed with repositioning every 2 hours with pillow support and off-load pressure areas with pillows for pressure re-distribution. Offload, elevate and float bilateral heels with pillows. Perform skin care and monitor skin integrity Q shift. Recommend surgical consult.
--- NOTE | 2022-08-03 16:25 | NUR ---
Director Cardiac re: social welfare research worker referral In to see patient at bedside. The patient is lethargic and unable to be aroused. The was at bedside, however she only speaks Dutch and states the patient also only speaks Dutch. The called the daughter, Cori, on her cell phone, who assisted in the conversation. Per daughter, the patient resides at home with his and son, who need to assist him with his daily care needs. The patient has a walker and wheelchair that he uses regularly. At this time, with the patient's recent re-admission, the family is considering SNF placement. The daughter and asked for recommendations of the "better/ best SNF that they can choose". i explained that with his insurance, he would need to go to what is contracted with [facility] and placement is based on who accepts. I also explained that the SNF ultimately will be based on the family conformability and understanding that the SNF is not the . The remains apprehensive about SNF placement. I informed the daughter that the has tried returning home, however the is not able to meet his needs the way he may need. The daughter states that the family is still deciding the best course of action. I informed them of additional care that the family can bring into the home for private pay. Resources were left for private caregivers as well as board and care placements. I informed the daughter providing a list of [facility] contracted SNF placements tomorrow morning once case management arrives. Prior to leaving the room, Dr. Cook stopped by to see the patient and discussed the clinical state of the patient with the and daughter. I informed the with my conversation with the family and my follow up that I will do tomorrow.
[2022-08-03] MEDS: 0.45% NACL 1,000 ML IV SCH (17:44)
[2022-08-03 20:00] VITALS: BP_SYST 156
[2022-08-03] MEDS: ATORVASTATIN 20 MG TABLET PO SCH (22:43)
--- NOTE | 2022-08-03 22:47 | NUR ---
RD Recommendations * Recommend Suplena w/ Carbsteady BID + Roque BID help meet nutrient needs -Provides 1020 kcals and 26 gm PRO daily * Recommend Vitamin B complex with C to assist with wound healing * Continue on Consistent Carb Diet -Consider liberalizing diet if PO intakes do not improve Monitor & evaluate weight trends, PO intake, GI, skin, labs Please refer to Nutrition Assessment (08/03/22) for details SUSANNE OROSCO Addendum: 08/03/22 at [address] Amended: Links added.
[2022-08-03] MEDS: ACETAMINOPHEN 325 MG TABLET PO PRN (22:54)
[2022-08-04 00:45] VITALS: BP_SYST 146
[2022-08-04] MEDS: AMPICILLIN SODIUM/SULBACTAM NA 3 GM in NS 100 ML IV SCH ×5 (01:58→23:14)
[2022-08-04] MEDS: DOCUSATE SODIUM 100 MG CAPSULE PO PRN (03:17)
[2022-08-04] MEDS: NORMAL SALINE 5 ML DISP.SYRIN IVF SCH ×3 (06:11→23:14)
[2022-08-04 08:01] LABS: CALCIUM 7.7 mg/dL (8.4-11.0); CREATININE 1.44 mg/dL (0.55-1.30)
[2022-08-04 08:28] LABS: BASOPHILS % (AUTO) 0.3 % (0.0-2.0); EOSINOPHILS # (AUTO) 0.1 K/uL (0.0-0.4); EOSINOPHILS % (AUTO) 0.8 % (0.0-4.0); HEMOGLOBIN 7.3 g/dL (14.0-18.0); LYMPHOCYTES # (AUTO) 1.3 K/uL (1.0-5.5); LYMPHOCYTES % (AUTO) 9.1 % (20.5-51.5); MEAN CORPUSCULAR HEMOGLOBIN 27 pg (27-31); MEAN CORPUSCULAR HGB CONC 33 % (32-36); MEAN CORPUSCULAR VOLUME 83 fL (79.0-98.0); MONOCYTES # (AUTO) 1.3 K/uL (0.0-1.0); MONOCYTES % (AUTO) 9.4 % (1.7-9.3); NEUTROPHILS # (AUTO) 11.3 K/uL (1.8-7.7); NEUTROPHILS % (AUTO) 80.4 % (40.0-70.0); PLATELET COUNT (AUTO) 624 K/uL (130-430); RED BLOOD CELL COUNT(AUTO) 2.66 MIL/uL (4.2-6.2); RED CELL DISTRIBUTION WIDTH 15.8 % (9.0-15.0)
[2022-08-04 08:35] LABS: C-REACTIVE PROTEIN QUANT 23.9 mg/dL (0-0.5)
[2022-08-04 08:36] LABS: ERYTHROCYTE SEDIMENTATION RATE 75 MM/HR (0-15)
--- NOTE | 2022-08-04 09:15 | NUR ---
Provided a list of contracted [facility] SNFs for the family's review. Daughter, Cori, called and advised list was left at bedside, however placement in the SNF is based on which facility will accept. per daughter, she will inform the .
[2022-08-04] MEDS: DOXYCYCLINE HYCLATE 100 MG CAPSULE PO SCH (09:16)
[2022-08-04] MEDS: LISINOPRIL 10 MG TABLET (PRINIVIL) PO SCH (09:16)
[2022-08-04] MEDS: BALSAM PERU/CASTOR OIL 56.7 GM OINT...G. TP SCH (09:21)
[2022-08-04] MEDS ORDERED: CLINDAMYCIN 600 MG in D5W 50 ML IV SCH (09:45)
[2022-08-04] MEDS ORDERED: CALCIUM GLUCONATE 2 GM in NS 100 ML IV ONE (10:15)
[2022-08-04 11:22] VITALS: BP_SYST 154
[2022-08-04] MEDS: 0.45% NACL 1,000 ML IV SCH (12:30)
[2022-08-04] MEDS: INSULIN REGULAR, HUMAN 100 UNITS/ML, 3 ML VIAL (humuLIN R) SUBCUT PRN ×3 (12:34→20:36)
[2022-08-04] MEDS: ACETAMINOPHEN 325 MG TABLET PO PRN (12:50)
[2022-08-04] MEDS: CLINDAMYCIN HCL 150 MG CAPSULE PO SCH ×3 (13:00→20:27)
[2022-08-04 15:37] VITALS: BP_SYST 149
--- NOTE | 2022-08-04 16:00 | NUR ---
PATIENT C/O 08/29 PAIN IN RIGHT FOOT, PRN NORCO ADMINISTERED PER EMAR
[2022-08-04] MEDS: HYDROcodone/ACETAMIN 10-325 MG TAB PO PRN (16:10)
--- NOTE | 2022-08-04 19:00 | NUR ---
WOUND CARE PROVIDED, PATIENT TOLERATED WELL
--- NOTE | 2022-08-04 19:30 | NUR ---
OPENING NOTE Pt is awake lying in bed. at bedside. No s/s of respiratory distress. Breathing even and unlabored on 2L nasal cannula. GARTH picc line intact and patent with fluids running at ordered rate. No c/o pain at this time. Fall and safety precautions in place with bed in lowest position, bed alarm on, and call light within reach
[2022-08-04 20:00] VITALS: BP_SYST 140
--- NOTE | 2022-08-04 20:15 | NUR ---
DR JULIAN AT BEDSIDE Speaking w/ pt, , and daughter regarding possible surgery of BKA to the right foot. Per Dr, pt would need to be cleared by cardio and pulmo first
[2022-08-04] MEDS: LACTOBACILLUS RHAMNOSUS GG 1 CAP CAPSULE PO SCH (20:27)
[2022-08-04] MEDS: ATORVASTATIN 20 MG TABLET PO SCH (20:28)
--- NOTE | 2022-08-05 00:15 | NUR ---
ROUNDS Pt lying in bed, eyes closed. Breathing even and unlabored. Fall and safety checks in place
[2022-08-05 00:41] VITALS: BP_SYST 146
[2022-08-05] MEDS: HYDROcodone/ACETAMIN 10-325 MG TAB PO PRN ×2 (01:59→08:12)
[2022-08-05] MEDS: ACETAMINOPHEN 325 MG TABLET PO PRN (03:45)
--- NOTE | 2022-08-05 04:05 | NUR ---
ROUNDING NOTE Patient awake and alert. Breathing labored, even on room air. Safety check in place. Continue to monitor.
[2022-08-05 06:09] LABS: BASOPHILS # (AUTO) 0.1 K/uL (0.0-0.2); BASOPHILS % (AUTO) 0.5 % (0.0-2.0); EOSINOPHILS # (AUTO) 0.2 K/uL (0.0-0.4); EOSINOPHILS % (AUTO) 1.3 % (0.0-4.0); HEMATOCRIT 22.5 % (36-54); HEMOGLOBIN 7.4 g/dL (14.0-18.0); LYMPHOCYTES % (AUTO) 7.8 % (20.5-51.5); MEAN CORPUSCULAR HEMOGLOBIN 28 pg (27-31); MEAN CORPUSCULAR HGB CONC 33 % (32-36); MEAN CORPUSCULAR VOLUME 83 fL (79.0-98.0); MONOCYTES # (AUTO) 1.1 K/uL (0.0-1.0); MONOCYTES % (AUTO) 8.7 % (1.7-9.3); NEUTROPHILS # (AUTO) 10.5 K/uL (1.8-7.7); NEUTROPHILS % (AUTO) 81.7 % (40.0-70.0); PLATELET COUNT (AUTO) 694 K/uL (130-430); RED BLOOD CELL COUNT(AUTO) 2.69 MIL/uL (4.2-6.2); RED CELL DISTRIBUTION WIDTH 16.1 % (9.0-15.0); WHITE BLOOD COUNT (AUTO) 12.9 K/uL (4.8-10.8)
[2022-08-05 06:11] LABS: ALBUMIN 1.5 g/dL (3.4-4.8); C-REACTIVE PROTEIN QUANT 29.9 mg/dL (0-0.5); CREATININE 1.47 mg/dL (0.55-1.30); PHOSPHORUS 3.6 mg/dL (2.7-4.5); TOTAL BILIRUBIN 0.4 mg/dL (0.0-1.0)
[2022-08-05] MEDS: NORMAL SALINE 5 ML DISP.SYRIN IVF SCH ×3 (06:33→21:21)
[2022-08-05] MEDS: AMPICILLIN SODIUM/SULBACTAM NA 3 GM in NS 100 ML IV SCH (06:33)
[2022-08-05] MEDS: INSULIN REGULAR, HUMAN 100 UNITS/ML, 3 ML VIAL (humuLIN R) SUBCUT PRN ×4 (06:37→21:20)
--- NOTE | 2022-08-05 07:35 | NUR ---
OPENING NOTES Patient laying in bed resting. A/O x 4, Angolan speaking. Patient breathing even and unlabored on room air. Moderate pain to right foot, no distress, no SOB. Patient is on CCHO diet. Patient has Right upper arm picc line patent on infusion pump. Call light within reach, all needs met, will continue with plan of care.
[2022-08-05 07:53] VITALS: BP_SYST 128
[2022-08-05] MEDS: LACTOBACILLUS RHAMNOSUS GG 1 CAP CAPSULE PO SCH ×2 (08:13→21:10)
[2022-08-05] MEDS: LISINOPRIL 10 MG TABLET (PRINIVIL) PO SCH (08:13)
[2022-08-05] MEDS: CLINDAMYCIN HCL 150 MG CAPSULE PO SCH ×4 (08:14→21:10)
[2022-08-05] MEDS: 0.45% NACL 1,000 ML IV SCH (08:14)
[2022-08-05] MEDS: BALSAM PERU/CASTOR OIL 56.7 GM OINT...G. TP SCH (08:15)
[2022-08-05 08:29] LABS: ERYTHROCYTE SEDIMENTATION RATE 84 MM/HR (0-15)
--- NOTE | 2022-08-05 09:28 | NUR ---
[phone] DR WHITESIDE QUALITY PROJECT MANAGER S/W [facility] OFFICE
[2022-08-05] MEDS ORDERED: CALCIUM GLUCONATE 2 GM in NS 100 ML IV ONE (11:00)
--- NOTE | 2022-08-05 11:10 | NUR ---
ROUNDING NOTE Patient Lying in bed eye closed. Breathing labored, even on room air. Safety check in place. Continue to monitor.
[2022-08-05 11:20] VITALS: BP_SYST 140
[2022-08-05] MEDS: PIPERACILLIN/TAZO 2.25G/DEX-IS 50 ML IV SCH ×3 (12:26→23:49)
[2022-08-05 15:06] VITALS: BP_SYST 151
--- NOTE | 2022-08-05 18:48 | NUR ---
CLOSING NOTES Patient laying in bed resting. A/O x 4, Palestinian speaking. Patient breathing on 2L nasal canula. Patient complaint of pain on RT foot 8, no distress, no SOB. Patient is on CCHO diet. Patient has right upper arm PICC line. Call light within reach, all needs met, will endorse plan of care to strategic procurement manager nurse.
--- NOTE | 2022-08-05 19:30 | NUR ---
INITIAL NOTES; pt. sleeping when checked, 2 sons at bedside, does not want to wake up at this time. no distress. rt. foot wound with dressing intact and elevated with pillow. IVF infusing via rt. upper arm with PICC line. on O2 @ 1 liter per nc. on full time babysitter and shows sinus rhythm.
[2022-08-05 20:00] VITALS: BP_SYST 140
[2022-08-05] MEDS: ATORVASTATIN 20 MG TABLET PO SCH (21:10)
--- NOTE | 2022-08-05 21:30 | NUR ---
NOTES: pt. awakened. VS checked, due medications given. BS checked 190. sliding scale coverage given. pt. [address] at bedside[address] Cook was here earlier and schedule for Rt. below knee amputation tomorrow. consent will be sign later. NPO after midnite except medication.
--- NOTE | 2022-08-05 23:06 | NUR ---
NOTES: pt. c/o rt. foot pain, offered [place] po but he does not want po, he wants thru the IV, told him there is no order and will call and translated in Vietnamese by SEBLE Mcwilliams. called exchange for Dr. Federica Tate.
--- NOTE | 2022-08-05 23:33 | NUR ---
Paged Dr. Tate Ed
--- NOTE | 2022-08-05 23:34 | NUR ---
NOTES: paged Dr. Shannon Tate for the second time, returned the call right away and ordered MS 2 mg IVP x1.
[2022-08-05] MEDS ORDERED: MORPHINE 2 MG/ML INJ. SYRINGE IVP ONE (23:45)
[2022-08-06] VITALS (9 sets, daily range): BP systolic 134–152
[2022-08-06] MEDS: HYDROcodone/ACETAMIN 10-325 MG TAB PO PRN (01:26)
--- NOTE | 2022-08-06 01:37 | NUR ---
NOTES: pt. called ans still c/o pain on his right foot, Morphine did not help he said. [place] po given with small sips of water. pt. voided per urinal. call light at bedside.
--- NOTE | 2022-08-06 03:35 | NUR ---
NOTES: pt. able to sleep after pain medication on high johnson's position.
[2022-08-06] MEDS: 0.45% NACL 1,000 ML IV SCH (04:45)
--- NOTE | 2022-08-06 05:00 | NUR ---
NOTES: pt. awakened for lab draw.
[2022-08-06] MEDS: NORMAL SALINE 5 ML DISP.SYRIN IVF SCH ×3 (05:17→21:04)
[2022-08-06] MEDS: PIPERACILLIN/TAZO 2.25G/DEX-IS 50 ML IV SCH ×4 (05:17→21:02)
[2022-08-06 05:41] LABS: TOTAL IRON BIND. CAPACITY 78 ug/dL (250-450)
[2022-08-06 05:43] LABS: ALBUMIN 1.5 g/dL (3.4-4.8); CALCIUM 7.9 mg/dL (8.4-11.0); CREATININE 1.37 mg/dL (0.55-1.30); PHOSPHORUS 4.3 mg/dL (2.7-4.5); TOTAL BILIRUBIN 0.4 mg/dL (0.0-1.0)
--- NOTE | 2022-08-06 05:50 | NUR ---
NOTES: pt. checked by PACKAGE DRIER and was snoring. IV antibiotic infusing. pt. remain NPO except meds.
[2022-08-06 05:55] LABS: INR 1.2 (0.80-1.20)
--- NOTE | 2022-08-06 06:48 | NUR ---
CLOSING NOTES; BS checked 152, did not give sliding scale since pt. is NPO, also held Glucotrol. consent signed for schedule Rt. BKA. still c/o pain . IVF continuous, PICC line intact on rt. arm. pt. voided per urinal. for further care and assistance. will endorse to incoming shift.
--- NOTE | 2022-08-06 07:05 | NUR ---
OPENING NOTES Patient laying in bed resting. A/O x 4, Cypriot speaking. Patient breathing 2L on nasal canula. Moderate pain on right foot 5/10, no distress, no SOB. Patient is NPO due to schedule surgery. Patient has GARTH PICC line. Call light within reach, all needs met, will continue with plan of care.
[2022-08-06 07:29] LABS: BASOPHILS # (AUTO) 0.1 K/uL (0.0-0.2); BASOPHILS % (AUTO) 0.6 % (0.0-2.0); EOSINOPHILS # (AUTO) 0.2 K/uL (0.0-0.4); EOSINOPHILS % (AUTO) 1.7 % (0.0-4.0); LYMPHOCYTES # (AUTO) 1.6 K/uL (1.0-5.5); LYMPHOCYTES % (AUTO) 11.8 % (20.5-51.5); MEAN CORPUSCULAR HEMOGLOBIN 28 pg (27-31); MEAN CORPUSCULAR HGB CONC 33 % (32-36); MEAN CORPUSCULAR VOLUME 84 fL (79.0-98.0); MONOCYTES # (AUTO) 1.3 K/uL (0.0-1.0); MONOCYTES % (AUTO) 9.4 % (1.7-9.3); NEUTROPHILS # (AUTO) 10.4 K/uL (1.8-7.7); NEUTROPHILS % (AUTO) 76.5 % (40.0-70.0); PLATELET COUNT (AUTO) 666 K/uL (130-430); RED CELL DISTRIBUTION WIDTH 15.5 % (9.0-15.0); WHITE BLOOD COUNT (AUTO) 13.6 K/uL (4.8-10.8)
[2022-08-06 07:41] LABS: HEMATOCRIT 20.9 % (36-54); HEMOGLOBIN 6.9 g/dL (14.0-18.0)
[2022-08-06 07:48] LABS: ERYTHROCYTE SEDIMENTATION RATE 58 MM/HR (0-15)
[2022-08-06] MEDS: LACTOBACILLUS RHAMNOSUS GG 1 CAP CAPSULE PO SCH ×2 (08:10→21:03)
[2022-08-06] MEDS: CLINDAMYCIN HCL 150 MG CAPSULE PO SCH ×4 (08:11→21:02)
[2022-08-06] MEDS: LISINOPRIL 10 MG TABLET (PRINIVIL) PO SCH (08:11)
[2022-08-06] MEDS: BALSAM PERU/CASTOR OIL 56.7 GM OINT...G. TP SCH (09:00)
--- NOTE | 2022-08-06 09:30 | NUR ---
BT INITIATION: Consent signed per agreeing to administration of blood. Blood has been type and crossmatched. Blood sent from blood bank. Information on unit of blood checked against patient wristband at bedside by two nurses. All information matches. Patient or responsible constitution party informed of potential complications associated with blood transfusion. Informed of possible transfusion reaction symptoms. Aware of need to notify nurse at once of itching, shortness of breath, flushing, feeling of impending doom, or other symptoms not previously present. Vital signs taken within 5 minutes prior to initiation of transfusion. MECHANICAL ENGINEERING TECHNOLOGIST will remain with patient for first 15 minutes of transfusion at which time vital signs will be re-assessed.
--- NOTE | 2022-08-06 09:50 | NUR ---
BT 15 min post op Patient tolerated 15 mins of blood transfusion. Blood will continue to transfuse.
--- NOTE | 2022-08-06 10:09 | NUR ---
OR Patient left to OR to get Right BKA.
[2022-08-06] MEDS ORDERED: SEVOFLURANE 15 MIN GAS INH ONE (10:25)
[2022-08-06] MEDS ORDERED: PROPOFOL 200MG/ 20ML VIAL (DIPRIVAN) IV ONE (10:25)
[2022-08-06] MEDS ORDERED: MORPHINE SULFATE 10MG/10ML PF AMP ONE (10:25)
[2022-08-06] MEDS ORDERED: NS IRRIG SOLN 1000 ML IR ONE (10:25)
[2022-08-06] MEDS ORDERED: WATER FOR IRRIGATION,STERILE 1,000 ML IRRIG.SOLN IR ONE (10:25)
[2022-08-06] MEDS ORDERED: BUPIVACAINE /PF 0.75% 10 ML VIAL INJ ONE (10:25)
[2022-08-06] MEDS ORDERED: MORPHINE SULFATE 10MG/10ML PF AMP SP SCH (11:30)
[2022-08-06] MEDS ORDERED: DIPHENHYDRAMINE INJ 50 MG/ML VIAL IV PRN (11:30)
[2022-08-06] MEDS ORDERED: KETOROLAC TROMETHAMINE 60 MG/2 ML VIAL IM PRN (11:30)
[2022-08-06] MEDS ORDERED: NALOXONE HCL 0.4 MG/ML AMP (NARCAN) IVP PRN ×3 (11:30→13:00)
[2022-08-06] MEDS ORDERED: METOCLOPRAMIDE HCL 10 MG/2 ML VIAL IVP PRN (11:30)
[2022-08-06] MEDS ORDERED: ONDANSETRON HCL 4 MG/2 ML VIAL IVP PRN (11:30)
[2022-08-06] MEDS ORDERED: HYDROmorphone 1 MG/ML INJ. CARTRIDGE IVP PRN (11:30)
--- NOTE | 2022-08-06 12:40 | NUR ---
CM follow up with SNFs for DCP. Spoke with Romy at [facility] who states that they cannot accommodate IV abx Q6h. Spoke with Abbe at [facility] who states they may be able to accomodate IV abx Q6h. CM faxed updated referral to f#[phone]
[2022-08-06] MEDS ORDERED: HYDROcodone/ACETAMIN 5-325 MG TAB (NORCO/ VICODIN) PO PRN (13:00)
--- NOTE | 2022-08-06 14:18 | NUR ---
PATIENT BACK IN ROOM Patient is back in room from OR. Patient stable, no pain, no sob, no distress. Vitals taken and recorded. Patient eating lunch with at bedside.
--- NOTE | 2022-08-06 16:00 | NUR ---
CM follow up with Abbe at [facility]. [phone]. Abbe will check with his DON to see if they have clinically accepted this patient
--- NOTE | 2022-08-06 16:05 | NUR ---
ROUNDING NOTE Patient Lying in bed with at bedside, getting a blood transfusion. Breathing labored, even on room air. Safety check in place. Continue to monitor.
--- NOTE | 2022-08-06 17:00 | NUR ---
ZOSYN/BLOOD TRANSFUSION Spoke with Verenice in the pharmacy regarding 1800 dose since patient is actively getting a blood transfusion. Per Pharmacy it is best to wait until after transfusion is completed to give the zosyn.. Blood transfusion should be done by 1930. Will endorse to shift supervisor melting RN.
[2022-08-06] MEDS: INSULIN REGULAR, HUMAN 100 UNITS/ML, 3 ML VIAL (humuLIN R) SUBCUT PRN ×2 (17:19→21:12)
--- NOTE | 2022-08-06 18:38 | NUR ---
CLOSING NOTES Patient laying in bed resting. A/O x 4, gambian speaking. Patient breathing on 2L nasal canula. No pain, no distress, no SOB. Patient is on regular diet. Call light within reach, all needs met, will endorse to operations supervisor 2nd shift nurse.
--- NOTE | 2022-08-06 18:44 | NUR ---
>>>PT NOTES<<< PATIENT WAS NOT AVAILABLE FOR PT EVAL. PATIENT IS RECEIVING BLOOD TRANSFUSION. WILL FOLLOW UP TOMORROW, 08/07/22.
[2022-08-06] MEDS: ATORVASTATIN 20 MG TABLET PO SCH (21:02)
--- NOTE | 2022-08-06 21:13 | NUR ---
stool collected & sent to lab / .
[2022-08-07 00:46] VITALS: BP_SYST 144
[2022-08-07] MEDS: PIPERACILLIN/TAZO 2.25G/DEX-IS 50 ML IV SCH ×2 (02:08→06:13)
--- NOTE | 2022-08-07 05:16 | NUR ---
Hourly Rounding patient awake assist for position change call lindsay given to patient bed alarm is on / .
[2022-08-07 05:28] LABS: BASOPHILS # (AUTO) 0.1 K/uL (0.0-0.2); BASOPHILS % (AUTO) 0.6 % (0.0-2.0); EOSINOPHILS # (AUTO) 0.2 K/uL (0.0-0.4); EOSINOPHILS % (AUTO) 1.2 % (0.0-4.0); HEMATOCRIT 28.3 % (36-54); HEMOGLOBIN 9.6 g/dL (14.0-18.0); LYMPHOCYTES # (AUTO) 1.5 K/uL (1.0-5.5); LYMPHOCYTES % (AUTO) 11.9 % (20.5-51.5); MEAN CORPUSCULAR HEMOGLOBIN 29 pg (27-31); MEAN CORPUSCULAR HGB CONC 34 % (32-36); MEAN CORPUSCULAR VOLUME 85 fL (79.0-98.0); MONOCYTES # (AUTO) 1.4 K/uL (0.0-1.0); MONOCYTES % (AUTO) 11.3 % (1.7-9.3); NEUTROPHILS # (AUTO) 9.4 K/uL (1.8-7.7); PLATELET COUNT (AUTO) 581 K/uL (130-430); RED BLOOD CELL COUNT(AUTO) 3.34 MIL/uL (4.2-6.2); RED CELL DISTRIBUTION WIDTH 15.7 % (9.0-15.0); WHITE BLOOD COUNT (AUTO) 12.6 K/uL (4.8-10.8)
[2022-08-07 06:00] LABS: ALBUMIN 1.5 g/dL (3.4-4.8); C-REACTIVE PROTEIN QUANT 23.5 mg/dL (0-0.5); CALCIUM 7.7 mg/dL (8.4-11.0); CREATININE 1.29 mg/dL (0.55-1.30); PHOSPHORUS 3.3 mg/dL (2.7-4.5); TOTAL BILIRUBIN 0.5 mg/dL (0.0-1.0)
[2022-08-07] MEDS: 0.45% NACL 1,000 ML IV SCH ×2 (06:13→13:54)
[2022-08-07] MEDS: INSULIN REGULAR, HUMAN 100 UNITS/ML, 3 ML VIAL (humuLIN R) SUBCUT PRN ×3 (06:15→18:00)
[2022-08-07] MEDS: NORMAL SALINE 5 ML DISP.SYRIN IVF SCH ×2 (06:16→13:51)
[2022-08-07 07:36] LABS: ERYTHROCYTE SEDIMENTATION RATE 60 MM/HR (0-15)
--- NOTE | 2022-08-07 08:02 | NUR ---
CM follow up with [facility]. They will not be accepting this patient due to "financial reasons"
[2022-08-07 08:06] LABS: FERRITIN 1217 ng/mL (30-400)
[2022-08-07 08:32] VITALS: BP_SYST 116
--- NOTE | 2022-08-07 08:47 | NUR ---
KAYLENE spoke with Dr Granados regarding patient IV abx Q6h. Dr Mir informs that he wants to discontinue the IV Zosyn and start IV Cefepime 2g daily x [address] Mir asking for KAYLENE to give this message to Dr Tate so that he can place the order. Dr Tate notified and will place the order
[2022-08-07] MEDS: BALSAM PERU/CASTOR OIL 56.7 GM OINT...G. TP SCH (09:00)
[2022-08-07] MEDS: CLINDAMYCIN HCL 150 MG CAPSULE PO SCH ×3 (09:08→17:57)
[2022-08-07] MEDS: LACTOBACILLUS RHAMNOSUS GG 1 CAP CAPSULE PO SCH (09:08)
[2022-08-07] MEDS: LISINOPRIL 10 MG TABLET (PRINIVIL) PO SCH (09:09)
[2022-08-07] MEDS ORDERED: CEFE2FRO IV (09:32)
[2022-08-07] MEDS ORDERED: CLE150 PO (09:32)
[2022-08-07] MEDS ORDERED: CALC650T29 PO (09:32)
[2022-08-07] MEDS ORDERED: CALCIUM 500 MG/TAB PO ONE (09:45)
[2022-08-07] MEDS ORDERED: CEFEPIME 2 GM in D5W 100 ML IV SCH (10:00)
[2022-08-07 11:31] VITALS: BP_SYST 149
[2022-08-07 12:06] LABS: ANTI NUCLEAR AB WITH REFLEX Positive (Negative)
--- NOTE | 2022-08-07 12:07 | NUR ---
CM faxed updated referrals to [facility]; Abbe informs that he has no male beds. Referral faxed to [facility]; Charlee states they will accept the patient . room 22B. She is requesting auth from the patient insurance. Also her ID nurse is requesting final wound culture ; will fax results.
--- NOTE | 2022-08-07 14:17 | NUR ---
Nutrition F/U Dressmaker Garment Fitter reviewed pts current EMR including diet hx, physician notes, nursing notes, pertinent labs/meds/procedures, care trends and care activity. Admitting Diagnosis Sepsis, Pneumonia and Respiratory Failure Medical History Comment: Per H&P (08/01/2022), patient is a 57-year-old male who presents to the ER for wound checks associated with fevers up to 104 degrees and tachycardia of 120s. The patient was given Tylenol at the facility. Family states that they noticed a black area at the bottom of the right foot, but are unsure if this is old or new. past medical history: diabetes, hypertension, hyperlipidemia. 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 Poor appetite most likely secondary to sepsis. Subjective Information Dressmaker Garment Fitter rounded to pts room. was present but is Divehi speaking. Spoke w/ daughter (Cori) via phone about pts poor appetite. Daughter said pt did not eat well yesterday d/t vomiting episode; however, he was able to increase his PO intake more this morning. He did not eat his L during visit because he was sleeping. Saw Glucerna on pts table but theres no order on Zinio. DI relayed message to primary RN to monitor pts PO intake and provide meds for nausea and vomiting if needed. WBC 12.6H, H/H 9.6L/28.3L, BUN 23H, BG 217H, POC BG 276H, CRP 23.5H BKA ABW: 145#/66kg Current Diet Order/Nutrition Support CCHO diet x 1 day; Roque BID x 3 days Height (Feet) 5 feet Height (Inches) 8.00 inches Weight (Pounds) 150 pounds Patient Weight 68.039 kg Body Mass Index 22.80 kg/m2 Weight Status Appropriate Last BM August 07, 2022 x 1 Skin Integrity Comment: Dev Score: 17 Wounds: BKA on R foot Edema: None noted Current % PO Poor; avg 46% x 8 meals (no improvement) Estimated Energy Expenditure (kcals/day) 2532-8611 (30-35 kcals/kg of CBW [68kg] d/t Sx wound healing) Estimated Protein Required (g/day) [NEW] 82-102 (1.2-1.5 gm/kg of CBW d/t DAYSI, Sx wound healing) Estimated Fluid Required (l/day) per MD Rx Problem/Etiology/Signs/Symptoms * Inadequate protein/energy intake R/T poor appetite and increased nutrient needs AEB reported inadequate PO intake x 2 days (*Ongoing). * Increased nutrient needs r/t increased demand for nutrient AEB multiple wounds; has diabetic ulcers (*Ongoing, refer to wound care note). * Altered nutrition-related labs R/T endocrine/renal dysfunction, current medical condition AEB WBC 12.6H, H/H 9.6L/28.3L, BUN 23H, BG 217H, POC BG 276H, CRP 23.5H (*Ongoing). Expected Outcomes/Goals * PO intake to meet at least 75% of estimated nutrient needs without GI complications (ongoing) * Weight to remain stable; no significant weight changes during hospital stay (ongoing) * Improved/stable nutrition-related labs (ongoing) * Signs of wound healing by discharge (ongoing) Dietitian Recommendations * Continue on Consistent Carb Diet -Consider liberalizing diet if PO intakes do not improve * Recommend Suplena w/ Carbsteady BID + Roque BID help meet nutrient needs -Provides 1020 kcals and 26 gm PRO daily * Recommend Vitamin B complex with C to assist with wound healing Follow Up High Risk: F/U in 2-3days LP, MS, RD
--- NOTE | 2022-08-07 14:18 | NUR ---
Dietitian Recommendations * Continue on Consistent Carb Diet -Consider liberalizing diet if PO intakes do not improve * Recommend Suplena w/ Carbsteady BID + Roque BID help meet nutrient needs -Provides 1020 kcals and 26 gm PRO daily * Recommend Vitamin B complex with C to assist with wound healing LP, MS, RD Please refer to Nutrition F/U for details.
--- NOTE | 2022-08-07 14:22 | NUR ---
[facility] accepted patient. will go to an isolation room. room 25. CM faxed clinicals and referral to [facility] f#[phone] for authorization for SNF and transportation. will contact pt [facility] KAYLENE Alexander [phone]
--- NOTE | 2022-08-07 14:59 | NUR ---
Pt. was seen for OT evaluation with present. Pls see OT eval in chart for more detail. Pt. will benefit from SNF placement with PT/OT. Nursing notified.
--- NOTE | 2022-08-07 15:43 | NUR ---
Met with at bedside at the request of JOSÉ MIGUEL Perdomo. The called the daughter, Cori, for assistance with translation. per Cori, the had paperwork from her job that she needed assistance with getting it completed. I referred the daughter and back to the patient's PCP as the PCP is the one that completes any [facility] paperwork related to a patient's clinical condition. I did offer a generic work letter that I could provide to the if she would like. The was provided a work letter at her request.
--- NOTE | 2022-08-07 15:51 | NUR ---
Telephone call made to [facility] Transport to set up transport for the patient. Per Aniya, the request has been received but is still pending. She advised that it take 2-3 hours to arrange and requested that a call back be made around 5p. [facility] Transport: [phone] [facility] NPI#: [id number]
--- NOTE | 2022-08-07 16:10 | NUR ---
CM spoke with pt [facility] KAYLENE Baxter who provided auth for SNF. auth# [id number]. Auth for transportation also provided; H [id number] [facility] transportation department called and will be using [employer] [phone]. Nurses station number given to dispatch for coordination purposes after CM hours. CM called Charlee at [facility] [phone]. auth for SNF given. patient to be discharged today. daughter aware. will place packet on unit.
[2022-08-07 17:15] VITALS: BP_SYST 146
[2022-08-07] MEDS: HYDROcodone/ACETAMIN 10-325 MG TAB PO PRN (17:57)
[2022-08-07 18:54] VITALS: BP_SYST 146
[2022-08-08] MEDS ORDERED: CALCIUM 500 MG/TAB PO SCH (09:00)
[2022-08-09 11:06] LABS: ANTI-SMOOTH MUSCLE AB 18 Units (0-19)
== END 2022-08-07 19:05 | DRG 853 ==
LOC: SED 11:16 → STU 14:40 → SMU 08-06 23:28
PROVIDERS: ADMIT Preventive Medicine Preventive Medicine/Occupational Environmental Medicine; ATTEND Preventive Medicine Preventive Medicine/Occupational Environmental Medicine
PROC: 30233N1 Transfusion of Nonautologous Red Blood Cells into Peripheral Vein, Percutaneous Approach (ICD-10-PCS; 2022-08-06)
PROC: 0Y6H0Z1 Detachment at Right Lower Leg, High, Open Approach (ICD-10-PCS; principal; 2022-08-06 10:25)
DX: A41.9 Sepsis, unspecified organism (principal); A48.0 Gas gangrene; E43 Unspecified severe protein-calorie malnutrition; J96.01 Acute respiratory failure with hypoxia; M72.6 Necrotizing fasciitis; I21.A1 Myocardial infarction type 2; J15.6 Pneumonia due to other Gram-negative bacteria; N17.9 Acute kidney failure, unspecified; E11.52 Type 2 diabetes mellitus with diabetic peripheral angiopathy with gangrene; E87.1 Hypo-osmolality and hyponatremia; M86.9 Osteomyelitis, unspecified; Z16.21 Resistance to vancomycin; L03.116 Cellulitis of left lower limb; E11.65 Type 2 diabetes mellitus with hyperglycemia; E78.00 Pure hypercholesterolemia, unspecified; E11.621 Type 2 diabetes mellitus with foot ulcer; B95.2 Enterococcus as the cause of diseases classified elsewhere; D64.9 Anemia, unspecified; D75.839 Thrombocytosis, unspecified; E11.319 Type 2 diabetes mellitus with unspecified diabetic retinopathy without macular edema; E11.40 Type 2 diabetes mellitus with diabetic neuropathy, unspecified; E83.51 Hypocalcemia; E88.09 Other disorders of plasma-protein metabolism, not elsewhere classified; E11.69 Type 2 diabetes mellitus with other specified complication; E11.628 Type 2 diabetes mellitus with other skin complications; R74.01 Elevation of levels of liver transaminase levels; Z20.822 Contact with and (suspected) exposure to COVID-19; K76.0 Fatty (change of) liver, not elsewhere classified; L97.509 Non-pressure chronic ulcer of other part of unspecified foot with unspecified severity; S91.301A Unspecified open wound, right foot, initial encounter; X58.XXXA Exposure to other specified factors, initial encounter; N18.9 Chronic kidney disease, unspecified; E11.22 Type 2 diabetes mellitus with diabetic chronic kidney disease; I12.9 Hypertensive chronic kidney disease with stage 1 through stage 4 chronic kidney disease, or unspecified chronic kidney disease; Z86.73 Personal history of transient ischemic attack (TIA), and cerebral infarction without residual deficits; Z87.891 Personal history of nicotine dependence; Z89.511 Acquired absence of right leg below knee; Z90.49 Acquired absence of other specified parts of digestive tract; Y93.89 Activity, other specified; Y92.89 Other specified places as the place of occurrence of the external cause; Y99.8 Other external cause status; Z68.22 Body mass index [BMI] 22.0-22.9, adult
CPT/HCPCS: 36415; 71045; 71275; 73721; 76376; 76700-TC; 80048; 80053; 81000; 82272; 82728; 82962; 83516; 83540; 83550; 83605; 83735; 84100; 84484; 85025; 85610-TC; 85651-TC; 85730-TC; 86038; 86140; 86886; 86900; 86901; 86920; 87040; 87070-TC; 87081; 87086; 87186-TC; 88305; 93005; 93306; 94010; 96365; 96367; 97530-GP; 99285; G0378; G0480; J0295; J0610; J0692; J1815; J1885; J1956; J2270; J2274; J2405; J2543; J2704; J2997; J3490; J7050; J7060; P9021; Q9967